=== PATIENT | male | born 1960 | race Two or more races ===

== ENCOUNTER 2021-02-09 18:25 | Inpatient (IN) | payer SELFPAY ==
[~2021-02-09] VITALS: Ht 177.8 cm; Wt 63.0 kg
[2021-02-09 19:21] LABS: Basophils # (auto) 0 10 ^3/uL (0-0.2); Eosinophils # (auto) 0.1 10 ^3/uL (0-0.8); Lymphocytes # (auto) 1.3 10 ^3/uL (0.4-5.4); Monocytes # (auto) 0.4 10 ^3/uL (0-1.3); Neutrophils # (auto) 2.6 10 ^3/uL (1.6-8.6); White Blood Cell 4.5 10^3/uL (4.4-10.8)
[2021-02-09 19:23] LABS: Eosinophils % (auto) 2.6 % (0.0-7.0); Hematocrit 39.1 % (41.0-53.0); Lymphocytes % (auto) 29.1 % (10.0-50.0); Mean Corpuscular Hemoglobin 36.5 pg (28.0-32.0); Mean Corpuscular Hgb Conc. 35.9 g/dL (32.0-36.0); Mean Corpuscular Volume 101.8 fL (80.0-100.0); Monocytes % (auto) 9.4 % (0.0-12.0); Neutrophils % (auto) 57.9 % (37.0-80.0); Nucleated Red Blood Cells % 0.1 %; Platelet Count (auto) 236 10^3/uL (140-450); Red Blood Cells 3.84 10^6/uL (4.5-5.90); Red Cell Distribution Width 13.3 % (11.8-14.3)
[2021-02-09 19:38] LABS: Albumin 3.2 g/dL (3.4-5.0); Anion Gap 10 (5-15); Blood Alcohol < 3.0 mg/dL (0-5); Blood Urea Nitrogen 14 mg/dL (7-18); Calcium 8.6 mg/dL (8.5-10.1); Carbon Dioxide 21 mmol/L (21-32); Chloride 107 mmol/L (98-107); Glucose 86 mg/dL (74-106); Magnesium 1.9 mg/dL (1.6-2.6); Potassium 3.9 mmol/L (3.5-5.1); Sodium 138 mmol/L (136-145)
[2021-02-09 19:54] LABS: Alanine Aminotransferase 26 U/L (16-61); Alkaline Phosphatase 62 U/L (45-117); Aspartate Aminotransferase 20 U/L (15-37); BUN/Creatinine Ratio 12.8; Bilirubin, Total 0.6 mg/dL (0.2-1.0); GFR African American 89 mL/min; GFR Non-African American 74 mL/min
[2021-02-09] MEDS ORDERED: cloNIDine HCL 0.1 MG TAB PO ONE (20:15)
[2021-02-09] MEDS ORDERED: TETANUS-DIPTH-ACEL PERTUSSIS 0.5ML SYR Tdap IM ONE (21:15)
[2021-02-09] MEDS ORDERED: ACETAMINOPHEN 325 MG TAB PO ONE (21:15)
[2021-02-09 21:44] LABS: Magnesium 1.9 mg/dL (1.6-2.6)
[2021-02-09 21:48] LABS: Alcohol, Urine < 3.0 mg/dL (0-10); Amphetamine Screen, Urine NEGATIVE (NEGATIVE); Barbiturate Scree,Urine NEGATIVE (NEGATIVE); Benzodiazephine Screen, Urine NEGATIVE (NEGATIVE); Cannabinoid Screen, Urine NEGATIVE (NEGATIVE); Cocaine Screen, Urine POSITIVE (NEGATIVE); Opiate Scree,Urine NEGATIVE (NEGATIVE); Phencyclidine Screen, Urine NEGATIVE (NEGATIVE)
[2021-02-10] VITALS (8 sets, daily range): BP systolic 125–158; BP diastolic 72–102
[2021-02-10] MEDS ORDERED: NITROGLYCERIN 0.4 MG SL TAB SL PRN (01:15)
[2021-02-10] MEDS ORDERED: hydrALAZINE HCL 20 MG/ML VL IV PRN (01:15)
[2021-02-10] MEDS ORDERED: DOCUSATE SOD 100 MG CAP PO PRN (01:15)
[2021-02-10] MEDS ORDERED: ACETAMINOPHEN 325 MG TAB PO PRN (01:15)
[2021-02-10] MEDS ORDERED: ONDANSETRON HCL 4 MG/2 ML VIAL IV PRN (01:15)
[2021-02-10] MEDS ORDERED: HYDROcodone-ACET 5/325MG TAB PO PRN (01:15)
[2021-02-10] MEDS ORDERED: LORazepam 2MG/ML-1ML VIAL IV PRN (01:15)
[2021-02-10] MEDS ORDERED: MORPHINE SULF INJ 2 MG/ML SYRINGE 1ML IV PRN (01:15)
[2021-02-10 08:44] LABS: Basophils # (auto) 0 10 ^3/uL (0-0.2); Basophils % (auto) 0.9 % (0.0-2.0); Eosinophils # (auto) 0.2 10 ^3/uL (0-0.8); Eosinophils % (auto) 3.3 % (0.0-7.0); Hematocrit 39.1 % (41.0-53.0); Hemoglobin 13.8 g/dL (13.5-17.5); Lymphocytes # (auto) 1.2 10 ^3/uL (0.4-5.4); Mean Corpuscular Hemoglobin 36.1 pg (28.0-32.0); Mean Corpuscular Hgb Conc. 35.3 g/dL (32.0-36.0); Mean Corpuscular Volume 102.3 fL (80.0-100.0); Monocytes # (auto) 0.5 10 ^3/uL (0-1.3); Monocytes % (auto) 10.1 % (0.0-12.0); Neutrophils % (auto) 61.7 % (37.0-80.0); Platelet Count (auto) 227 10^3/uL (140-450); Red Blood Cells 3.82 10^6/uL (4.5-5.90); Red Cell Distribution Width 13.1 % (11.8-14.3); White Blood Cell 4.9 10^3/uL (4.4-10.8)
[2021-02-10] MEDS ORDERED: ENOXAPARIN SOD 40 MG/0.4 ML SYRINGE SC SCH (10:00)
[2021-02-10] MEDS ORDERED: FOLIC ACID 1 MG TAB PO SCH (10:00)
[2021-02-10] MEDS ORDERED: ZINC SULFATE 220mg CAP or TAB PO SCH (10:00)
[2021-02-10] MEDS ORDERED: ASCORBIC ACID 500 MG TAB PO SCH (10:00)
[2021-02-10] MEDS ORDERED: THIAMINE HCL 100 MG TAB PO SCH (10:00)
[2021-02-10] MEDS ORDERED: FAMOTIDINE (10MG/ML) 2ML VL IV SCH (10:00)
[2021-02-10] MEDS ORDERED: amLODIPine BESYLATE 5 MG TAB PO SCH (10:00)
[2021-02-10] MEDS ORDERED: MULTIPLE VITAMIN TAB PO SCH (10:00)
[2021-02-10 10:36] LABS: Calcium 8.9 mg/dL (8.5-10.1)
[2021-02-10 10:41] LABS: BUN/Creatinine Ratio 11.9; Bilirubin, Total 0.7 mg/dL (0.2-1.0); Total Protein 6.6 g/dL (6.4-8.2)
== END 2021-02-10 18:40 | disposition home or self-care (01) | DRG 605 ==
LOC: EDBD 18:25 → ER 18:33 → TELE 02-10 01:10 → TELE-WESTW 02-10 02:40
PROVIDERS: ADMIT Nurse Practitioner Family; ATTEND Nurse Practitioner Family
DX: S80.219A Abrasion, unspecified knee, initial encounter (principal); S60.519A Abrasion of unspecified hand, initial encounter; Z20.822 Contact with and (suspected) exposure to COVID-19; E78.5 Hyperlipidemia, unspecified; F17.210 Nicotine dependence, cigarettes, uncomplicated; I11.9 Hypertensive heart disease without heart failure; W18.39XA Other fall on same level, initial encounter; I70.0 Atherosclerosis of aorta; F10.10 Alcohol abuse, uncomplicated; Y93.01 Activity, walking, marching and hiking; Y92.89 Other specified places as the place of occurrence of the external cause; Y99.8 Other external cause status; Z79.899 Other long term (current) drug therapy; Z86.73 Personal history of transient ischemic attack (TIA), and cerebral infarction without residual deficits; Z91.14 Patient's other noncompliance with medication regimen; Z91.19 Patient's noncompliance with other medical treatment and regimen; Z79.891 Long term (current) use of opiate analgesic; Z79.01 Long term (current) use of anticoagulants
CPT/HCPCS: 36415; 70450; 71045; 80053; 80307; 80320; 83735; 83880; 84484; 85025; 85610; 85730; 87426; 90715; 96374; G0378; J3490

== ENCOUNTER 2021-03-10 19:36 | Emergency (ER) | payer MEDICAID, OTHER ==
[~2021-03-10] VITALS: Ht 190.5 cm; Wt 72.6 kg
[2021-03-10 22:11] LABS: Hemoglobin 15.5 g/dL (13.5-17.5)
[2021-03-10 22:13] LABS: Basophils # (auto) 0 10 ^3/uL (0-0.2); Basophils % (auto) 0.6 % (0.0-2.0); Eosinophils # (auto) 0.2 10 ^3/uL (0-0.8); Eosinophils % (auto) 2.2 % (0.0-7.0); Hematocrit 44.1 % (41.0-53.0); Lymphocytes # (auto) 1.8 10 ^3/uL (0.4-5.4); Lymphocytes % (auto) 25.4 % (10.0-50.0); Mean Corpuscular Hemoglobin 35.9 pg (28.0-32.0); Mean Corpuscular Hgb Conc. 35.2 g/dL (32.0-36.0); Monocytes # (auto) 0.6 10 ^3/uL (0-1.3); Monocytes % (auto) 8.2 % (0.0-12.0); Neutrophils # (auto) 4.4 10 ^3/uL (1.6-8.6); Neutrophils % (auto) 63.6 % (37.0-80.0); Nucleated Red Blood Cells % 0.3 %; Platelet Count (auto) 211 10^3/uL (140-450); Red Blood Cells 4.32 10^6/uL (4.5-5.90)
[2021-03-10 22:37] LABS: Albumin 3.7 g/dL (3.4-5.0); Calcium 9.2 mg/dL (8.5-10.1); Potassium 3.9 mmol/L (3.5-5.1)
[2021-03-10 22:39] LABS: BUN/Creatinine Ratio 12.5
[2021-03-10 22:42] LABS: Bilirubin, Total 0.8 mg/dL (0.2-1.0); Total Protein 8.2 g/dL (6.4-8.2)
[2021-03-11] MEDS ORDERED: LABETALOL HCL 5 MG/ML 4ML SYRINGE IV ONE (06:15)
[2021-03-11] MEDS ORDERED: SODIUM CHLORIDE 0.9% 1,000 ML IV ONE (07:00)
[2021-03-11] MEDS ORDERED: ASPirin 81 mg TAB PO ONE (07:00)
[2021-03-11 08:10] LABS: INR 0.97 (0.9-1.15); Partial Thromboplastin Time 27.9 sec (23.0-31.2)
[2021-03-11] MEDS ORDERED: IOHEXOL 350 MG/ML 100ML IJ ONE (10:37)
[2021-03-11 11:37] LABS: Urine Bacteria NONE SEEN /hpf (None Seen); Urine Blood Negative /uL (Negative); Urine Mucus FEW (None Seen); Urine Specific Gravity 1.019 (1.001-1.035); Urine WBC 1 /hpf (0 - 3)
[2021-03-11] MEDS ORDERED: TAMSULOSIN HYDROCHLORIDE 0.4 MG CAP PO ONE (13:45)
[2021-03-11 15:00] VITALS: BP 150/85
== END 2021-03-11 15:29 | disposition home or self-care (01) ==
LOC: ER 19:39
DX: R07.89 Other chest pain (principal); J43.8 Other emphysema; I10 Essential (primary) hypertension; N40.0 Benign prostatic hyperplasia without lower urinary tract symptoms; D75.89 Other specified diseases of blood and blood-forming organs; E78.5 Hyperlipidemia, unspecified; F17.210 Nicotine dependence, cigarettes, uncomplicated; Z86.73 Personal history of transient ischemic attack (TIA), and cerebral infarction without residual deficits
CPT/HCPCS: 36415; 71045; 71275; 80053; 81001; 83735; 84443; 84484; 85025; 85049; 85379; 85610; 85730; 93005; 96361; 96374; 99285; J3490; Q9967

== ENCOUNTER 2021-04-18 20:39 | Emergency (ER) | payer MEDICAID ==
[~2021-04-18] VITALS: Ht 177.8 cm; Wt 72.6 kg
[2021-04-18 20:56] VITALS: BP 122/88
[2021-04-18] MEDS ORDERED: HYDROcodone-ACET 5/325MG TAB PO ONE (21:00)
[2021-04-18 21:12] LABS: Basophils # (auto) 0 10 ^3/uL (0-0.2); Basophils % (auto) 0.7 % (0.0-2.0); Eosinophils # (auto) 0.2 10 ^3/uL (0-0.8); Eosinophils % (auto) 3.2 % (0.0-7.0); Nucleated Red Blood Cells % 0.1 %
[2021-04-18 21:13] LABS: Hematocrit 46.6 % (41.0-53.0); Hemoglobin 16.1 g/dL (13.5-17.5); Lymphocytes # (auto) 1.5 10 ^3/uL (0.4-5.4); Lymphocytes % (auto) 30.1 % (10.0-50.0); Mean Corpuscular Hemoglobin 35.2 pg (28.0-32.0); Mean Corpuscular Hgb Conc. 34.5 g/dL (32.0-36.0); Monocytes # (auto) 0.3 10 ^3/uL (0-1.3); Monocytes % (auto) 6.9 % (0.0-12.0); Neutrophils % (auto) 59.1 % (37.0-80.0); Red Blood Cells 4.57 10^6/uL (4.5-5.90); Red Cell Distribution Width 15.2 % (11.8-14.3)
[2021-04-18 21:36] LABS: Alanine Aminotransferase 18 U/L (16-61); Albumin 3.8 g/dL (3.4-5.0); Anion Gap 8 (5-15); Aspartate Aminotransferase 19 U/L (15-37); BUN/Creatinine Ratio 11.6; Blood Urea Nitrogen 15 mg/dL (7-18); Carbon Dioxide 29 mmol/L (21-32); Chloride 104 mmol/L (98-107); GFR African American 73 mL/min; GFR Non-African American 61 mL/min; Glucose 105 mg/dL (74-106); Potassium 3.6 mmol/L (3.5-5.1); Sodium 141 mmol/L (136-145)
[2021-04-18 21:41] LABS: Alkaline Phosphatase 76 U/L (45-117); Bilirubin, Total 0.5 mg/dL (0.2-1.0); Total Protein 7.9 g/dL (6.4-8.2)
== END 2021-04-19 00:42 | disposition home or self-care (01) ==
LOC: EDBD 20:39 → ER 20:40
DX: K40.90 Unilateral inguinal hernia, without obstruction or gangrene, not specified as recurrent (principal); E78.5 Hyperlipidemia, unspecified; I10 Essential (primary) hypertension; F17.210 Nicotine dependence, cigarettes, uncomplicated; Z86.73 Personal history of transient ischemic attack (TIA), and cerebral infarction without residual deficits
CPT/HCPCS: 36415; 71045; 74176; 80053; 84484; 85025

== ENCOUNTER 2021-04-30 14:05 | Inpatient (IN) | payer MEDICAID ==
[~2021-04-30] VITALS: Ht 190.5 cm; Wt 61.1 kg
[2021-04-30] MEDS ORDERED: SODIUM CHLORIDE 0.9% 1,000 ML IV ONE ×2 (14:15)
[2021-04-30 15:59] LABS: Basophils # (auto) 0 10 ^3/uL (0-0.2); Eosinophils # (auto) 0 10 ^3/uL (0-0.8); Hemoglobin 14.8 g/dL (13.5-17.5); Monocytes # (auto) 0.6 10 ^3/uL (0-1.3); Red Cell Distribution Width 14.3 % (11.8-14.3)
[2021-04-30 16:01] LABS: Basophils % (auto) 0.4 % (0.0-2.0); Eosinophils % (auto) 0.5 % (0.0-7.0); Hematocrit 42.1 % (41.0-53.0); Lymphocytes % (auto) 11.1 % (10.0-50.0); Mean Corpuscular Hemoglobin 35.7 pg (28.0-32.0); Mean Corpuscular Hgb Conc. 35.2 g/dL (32.0-36.0); Mean Corpuscular Volume 101.6 fL (80.0-100.0); Monocytes % (auto) 6.7 % (0.0-12.0); Neutrophils % (auto) 81.3 % (37.0-80.0); Red Blood Cells 4.14 10^6/uL (4.5-5.90); White Blood Cell 8.6 10^3/uL (4.4-10.8)
[2021-04-30 16:16] LABS: Albumin 3.1 g/dL (3.4-5.0); BUN/Creatinine Ratio 9.6; Calcium 8.2 mg/dL (8.5-10.1); Potassium 3.9 mmol/L (3.5-5.1)
[2021-04-30 16:21] LABS: Bilirubin, Total 1.1 mg/dL (0.2-1.0); Total Protein 6.7 g/dL (6.4-8.2)
[2021-04-30 16:24] LABS: INR 1.02 (0.9-1.15); Partial Thromboplastin Time 25.8 sec (23.6-33.0)
[2021-04-30] MEDS ORDERED: ENOXAPARIN SOD 100 MG/1 ML SYRINGE SC ONE (17:30)
[2021-04-30 17:52] LABS: Urine Bacteria NONE SEEN /hpf (None Seen); Urine Blood Negative /uL (Negative); Urine WBC 1 /hpf (0 - 3)
[2021-04-30] MEDS ORDERED: MORPHINE SULFATE INJECTION 2 MG/ML SYRG IV PRN (21:00)
[2021-04-30] MEDS ORDERED: ACETAMINOPHEN 325 MG TAB PO PRN (21:00)
[2021-04-30] MEDS ORDERED: TEMAZEPAM 15 MG CAP PO PRN (21:00)
[2021-04-30] MEDS ORDERED: NITROGLYCERIN 0.4 MG SL TAB SL PRN (21:00)
[2021-04-30] MEDS ORDERED: ONDANSETRON HCL 4 MG/2 ML VIAL IV PRN (21:00)
[2021-04-30] MEDS: SODIUM CHLORIDE 0.9% 1,000 ML IV SCH (21:12)
[2021-04-30] MEDS: ATORVASTATIN 20 MG TAB PO SCH (22:30)
[2021-05-01] MEDS: cloNIDine HCL 0.1 MG TAB PO PRN ×2 (01:38→15:43)
[2021-05-01 06:42] LABS: Basophils # (auto) 0 10 ^3/uL (0-0.2); Eosinophils # (auto) 0.1 10 ^3/uL (0-0.8); Hemoglobin 15.1 g/dL (13.5-17.5); Mean Corpuscular Volume 102.6 fL (80.0-100.0); Monocytes # (auto) 0.5 10 ^3/uL (0-1.3); Neutrophils # (auto) 3.8 10 ^3/uL (1.6-8.6); Red Cell Distribution Width 14.8 % (11.8-14.3)
[2021-05-01 06:45] LABS: Basophils % (auto) 0.5 % (0.0-2.0); Eosinophils % (auto) 1.4 % (0.0-7.0); Hematocrit 43.3 % (41.0-53.0); Lymphocytes # (auto) 1.4 10 ^3/uL (0.4-5.4); Lymphocytes % (auto) 24.4 % (10.0-50.0); Mean Corpuscular Hemoglobin 35.9 pg (28.0-32.0); Neutrophils % (auto) 65.7 % (37.0-80.0); Red Blood Cells 4.22 10^6/uL (4.5-5.90); White Blood Cell 5.8 10^3/uL (4.4-10.8)
[2021-05-01 07:02] LABS: Albumin 3.1 g/dL (3.4-5.0); Calcium 8.7 mg/dL (8.5-10.1); Potassium 4.3 mmol/L (3.5-5.1)
[2021-05-01 07:06] LABS: BUN/Creatinine Ratio 12.4; Bilirubin, Total 1.3 mg/dL (0.2-1.0); Total Protein 6.8 g/dL (6.4-8.2)
[2021-05-01] MEDS: PANTOPRAZOLE 40 MG TAB PO SCH (09:17)
[2021-05-01] MEDS: SODIUM CHLORIDE 0.9% 1,000 ML IV SCH (09:18)
[2021-05-01] MEDS: ENOXAPARIN SOD 40 MG/0.4 ML SYRINGE SC SCH (09:18)
[2021-05-01] MEDS ORDERED: ASPirin 81 mg TAB PO SCH (10:00)
[2021-05-01] MEDS ORDERED: amLODIPine BESYLATE 5 MG TAB PO SCH (10:00)
[2021-05-01] MEDS ORDERED: NIFEdipine ER 30 MG TAB PO ONE (16:30)
[2021-05-01] MEDS ORDERED: hydrALAZINE HCL 20 MG/ML VL IV PRN (16:30)
[2021-05-01] MEDS: FOLIC ACID 1 MG, MULTIPLE VITAMIN 10 ML, MAGNESIUM SULF SDV 50% 8 MEQ, THIAMINE INJ 100... INJ SCH ×5 (18:15)
[2021-05-01] MEDS ORDERED: LORazepam 2MG/ML-1ML VIAL IV PRN (21:00)
[2021-05-01] MEDS: ATORVASTATIN 20 MG TAB PO SCH (22:30)
[2021-05-02] VITALS (7 sets, daily range): BP systolic 122–135; BP diastolic 66–92
[2021-05-02 07:06] LABS: Chloride 104 mmol/L (98-107); Potassium 3.8 mmol/L (3.5-5.1); Sodium 138 mmol/L (136-145)
[2021-05-02 07:21] LABS: Alanine Aminotransferase 18 U/L (16-61); Alkaline Phosphatase 63 U/L (45-117); Anion Gap 6 (5-15); Aspartate Aminotransferase 18 U/L (15-37); BUN/Creatinine Ratio 10.8; Bilirubin, Total 0.9 mg/dL (0.2-1.0); Blood Urea Nitrogen 12 mg/dL (7-18); Carbon Dioxide 28 mmol/L (21-32); Cholesterol 158 mg/dL (< 200); GFR African American 87 mL/min; GFR Non-African American 72 mL/min; Glucose 102 mg/dL (74-106); HDL Cholesterol 54 mg/dL (40-59); LDL Cholesterol 78 mg/dL (< 100); Total Protein 7.1 g/dL (6.4-8.2); Triglycerides 128 mg/dL (< 150)
[2021-05-02 08:24] LABS: Eosinophils # (auto) 0.1 10 ^3/uL (0-0.8); Hematocrit 43.7 % (41.0-53.0); Monocytes # (auto) 0.5 10 ^3/uL (0-1.3)
[2021-05-02 08:26] LABS: Basophils # (auto) 0.1 10 ^3/uL (0-0.2); Basophils % (auto) 0.9 % (0.0-2.0); Eosinophils % (auto) 1.7 % (0.0-7.0); Hemoglobin 15.1 g/dL (13.5-17.5); Lymphocytes # (auto) 1.1 10 ^3/uL (0.4-5.4); Lymphocytes % (auto) 17.9 % (10.0-50.0); Mean Corpuscular Hemoglobin 35.4 pg (28.0-32.0); Mean Corpuscular Hgb Conc. 34.6 g/dL (32.0-36.0); Mean Corpuscular Volume 102.4 fL (80.0-100.0); Monocytes % (auto) 7.7 % (0.0-12.0); Neutrophils # (auto) 4.6 10 ^3/uL (1.6-8.6); Neutrophils % (auto) 71.8 % (37.0-80.0); Nucleated Red Blood Cells % 0.1 %; Red Blood Cells 4.27 10^6/uL (4.5-5.90); Red Cell Distribution Width 14.5 % (11.8-14.3); White Blood Cell 6.4 10^3/uL (4.4-10.8)
[2021-05-02] MEDS: LISINOPRIL 20 MG TAB PO SCH (09:56)
[2021-05-02] MEDS: ASPirin 81 mg TAB PO SCH (09:56)
[2021-05-02] MEDS: PANTOPRAZOLE 40 MG TAB PO SCH (09:57)
[2021-05-02] MEDS: NIFEdipine ER 30 MG TAB PO SCH (09:57)
[2021-05-02] MEDS: ENOXAPARIN SOD 40 MG/0.4 ML SYRINGE SC SCH (09:58)
[2021-05-02] MEDS: FOLIC ACID 1 MG, MULTIPLE VITAMIN 10 ML, MAGNESIUM SULF SDV 50% 8 MEQ, THIAMINE INJ 100... INJ SCH ×5 (13:34)
[2021-05-02] MEDS ORDERED: TAM04C PO (17:56)
[2021-05-02] MEDS: ATORVASTATIN 20 MG TAB PO SCH (21:35)
[2021-05-03 05:00] VITALS: BP 134/60
[2021-05-03 09:00] VITALS: BP 129/86
[2021-05-03 09:23] LABS: Hepatitis B Surface Antibody Negative
[2021-05-03] MEDS ORDERED: ADENOSINE 51 MG in GIVE UN-DILUTED 0 ML IV ONE (09:30)
[2021-05-03 09:53] LABS: Hepatitis A Total Antibody Negative
[2021-05-03] MEDS: LISINOPRIL 20 MG TAB PO SCH (11:26)
[2021-05-03] MEDS: ASPirin 81 mg TAB PO SCH (11:26)
[2021-05-03] MEDS: ENOXAPARIN SOD 40 MG/0.4 ML SYRINGE SC SCH (11:26)
[2021-05-03] MEDS: NIFEdipine ER 30 MG TAB PO SCH (11:27)
[2021-05-03] MEDS: PANTOPRAZOLE 40 MG TAB PO SCH (11:27)
[2021-05-03 13:00] VITALS: BP 127/88
[2021-05-03] MEDS: FOLIC ACID 1 MG, MULTIPLE VITAMIN 10 ML, MAGNESIUM SULF SDV 50% 8 MEQ, THIAMINE INJ 100... INJ SCH ×5 (13:06)
[2021-05-03 14:35] LABS: Hepatitis B Core Total AB Negative; Hepatitis B Surface Antigen Negative (Negative); Hepatitis C Antibody Negative (Negative)
[2021-05-03 15:08] LABS: Alcohol, Urine < 3.0 mg/dL (0-10); Amphetamine Screen, Urine NEGATIVE (NEGATIVE); Barbiturate Scree,Urine NEGATIVE (NEGATIVE); Benzodiazephine Screen, Urine NEGATIVE (NEGATIVE); Cannabinoid Screen, Urine NEGATIVE (NEGATIVE); Cocaine Screen, Urine NEGATIVE (NEGATIVE); Opiate Scree,Urine NEGATIVE (NEGATIVE); Phencyclidine Screen, Urine NEGATIVE (NEGATIVE)
[2021-05-03 17:00] VITALS: BP 112/74
[2021-05-03] MEDS: TAMSULOSIN HYDROCHLORIDE 0.4 MG CAP PO SCH (18:00)
[2021-05-03 20:00] VITALS: BP 105/60
[2021-05-03] MEDS: ATORVASTATIN 20 MG TAB PO SCH (21:56)
[2021-05-03 22:00] VITALS: BP 105/60
[2021-05-04 05:00] VITALS: BP 114/67
[2021-05-04 06:12] LABS: Potassium 3.8 mmol/L (3.5-5.1)
[2021-05-04 06:19] LABS: BUN/Creatinine Ratio 11.1; Magnesium 2.6 mg/dL (1.6-2.6)
[2021-05-04] MEDS ORDERED: MIDAZOLAM HCL 2MG/2ML 2ml VIAL (1mg/ml) IV ONE (08:00)
[2021-05-04] MEDS ORDERED: diphenhdrAMINE HCL 50 MG/1 ML VL ONE (09:24)
[2021-05-04] MEDS ORDERED: LIDOCAINE VISCOUS 2% 15ML UD ONE (09:24)
[2021-05-04] MEDS: LISINOPRIL 20 MG TAB PO SCH (11:00)
[2021-05-04] MEDS: PANTOPRAZOLE 40 MG TAB PO SCH (11:00)
[2021-05-04] MEDS: ENOXAPARIN SOD 40 MG/0.4 ML SYRINGE SC SCH (11:00)
[2021-05-04] MEDS: ASPirin 81 mg TAB PO SCH (11:00)
[2021-05-04] MEDS: NIFEdipine ER 30 MG TAB PO SCH (11:00)
[2021-05-04] MEDS: FOLIC ACID 1 MG, MULTIPLE VITAMIN 10 ML, MAGNESIUM SULF SDV 50% 8 MEQ, THIAMINE INJ 100... INJ SCH ×5 (12:00)
[2021-05-04] MEDS ORDERED: ATOR20TA PO (12:30)
[2021-05-04] MEDS ORDERED: LISI20TA28 PO (12:30)
[2021-05-04] MEDS ORDERED: APIX2.5T PO (12:30)
[2021-05-04] MEDS ORDERED: PANT40TA2 PO (12:30)
[2021-05-04] MEDS ORDERED: NIFE1TAB31 PO (12:30)
[2021-05-04 15:53] VITALS: BP 112/67
[2021-05-04] MEDS: TAMSULOSIN HYDROCHLORIDE 0.4 MG CAP PO SCH (18:00)
== END 2021-05-04 18:45 | disposition hospice, home (50) | DRG 45 ==
LOC: EDBD 14:05 → EDUNIT# 14:05 → ER 14:05 → TELE 20:47 → TELE-WESTW 05-01 23:34
PROVIDERS: ADMIT Nurse Practitioner; ATTEND Internal Medicine
PROC: B24BZZ4 Ultrasonography of Heart with Aorta, Transesophageal (ICD-10-PCS; principal; 2021-05-04)
DX: I63.9 Cerebral infarction, unspecified (principal); N17.0 Acute kidney failure with tubular necrosis; I21.A1 Myocardial infarction type 2; G93.41 Metabolic encephalopathy; E44.0 Moderate protein-calorie malnutrition; F10.20 Alcohol dependence, uncomplicated; Z20.822 Contact with and (suspected) exposure to COVID-19; E78.5 Hyperlipidemia, unspecified; F12.90 Cannabis use, unspecified, uncomplicated; I11.0 Hypertensive heart disease with heart failure; I42.9 Cardiomyopathy, unspecified; G81.94 Hemiplegia, unspecified affecting left nondominant side; I50.43 Acute on chronic combined systolic (congestive) and diastolic (congestive) heart failure; I67.83 Posterior reversible encephalopathy syndrome; K46.9 Unspecified abdominal hernia without obstruction or gangrene; N40.0 Benign prostatic hyperplasia without lower urinary tract symptoms; Z79.82 Long term (current) use of aspirin; Z79.899 Other long term (current) drug therapy; Z91.14 Patient's other noncompliance with medication regimen; Z68.1 Body mass index [BMI] 19.9 or less, adult
CPT/HCPCS: 36415; 70450; 70551; 71045; 78452; 80048; 80053; 80061; 80307; 81001; 82306; 82550; 82962; 83735; 83880; 84443; 84484; 85025; 85610; 85730; 86704; 86706; 86708; 86803; 87340; 87426; 87493; 93005; 93017; 93306; 93312; 93886; 95819; 96360; 96361; 96372; 97163; 99152; G0378; J0153; J2250

== ENCOUNTER 2021-06-24 12:55 | Emergency (ER) | payer MEDICAID ==
[~2021-06-24] VITALS: Ht 180.3 cm; Wt 72.6 kg
[~2021-06-24 12:55] MED LIST: APIX2.5T PO; LISI20TA28 PO; PANT40TA2 PO; TAM04C PO
[2021-06-24 14:22] LABS: Basophils # (auto) 0 10 ^3/uL (0-0.2); Basophils % (auto) 0.4 % (0.0-2.0); Eosinophils # (auto) 0.1 10 ^3/uL (0-0.8); Eosinophils % (auto) 1.5 % (0.0-7.0); Hemoglobin 14.3 g/dL (13.5-17.5); Lymphocytes # (auto) 1.1 10 ^3/uL (0.4-5.4); Lymphocytes % (auto) 18.5 % (10.0-50.0); Mean Corpuscular Hemoglobin 33.9 pg (28.0-32.0); Mean Corpuscular Volume 99.7 fL (80.0-100.0); Monocytes # (auto) 0.4 10 ^3/uL (0-1.3); Monocytes % (auto) 6.8 % (0.0-12.0); Neutrophils # (auto) 4.4 10 ^3/uL (1.6-8.6); Neutrophils % (auto) 72.8 % (37.0-80.0); Red Blood Cells 4.21 10^6/uL (4.5-5.90); Red Cell Distribution Width 13.5 % (11.8-14.3)
[2021-06-24 14:39] LABS: Albumin 3.4 g/dL (3.4-5.0); Anion Gap 6 (5-15); Blood Urea Nitrogen 16 mg/dL (7-18); Calcium 9.3 mg/dL (8.5-10.1); Carbon Dioxide 29 mmol/L (21-32); Chloride 108 mmol/L (98-107); Glucose 71 mg/dL (74-106); Potassium 3.8 mmol/L (3.5-5.1); Sodium 143 mmol/L (136-145)
[2021-06-24 14:41] LABS: Alanine Aminotransferase 27 U/L (16-61); Aspartate Aminotransferase 16 U/L (15-37); BUN/Creatinine Ratio 10.6; Blood Alcohol < 3.0 mg/dL (0-5); GFR African American 61 mL/min; GFR Non-African American 51 mL/min
[2021-06-24 14:44] LABS: Alkaline Phosphatase 76 U/L (45-117); Bilirubin, Total 0.6 mg/dL (0.2-1.0); Total Protein 7.3 g/dL (6.4-8.2)
[2021-06-24 17:13] VITALS: BP 153/107
== END 2021-06-24 17:16 | disposition home or self-care (01) ==
LOC: EDBD 12:55 → ER 12:55
DX: S70.01XA Contusion of right hip, initial encounter (principal); S80.01XA Contusion of right knee, initial encounter; S00.81XA Abrasion of other part of head, initial encounter; I10 Essential (primary) hypertension; E78.5 Hyperlipidemia, unspecified; Z86.73 Personal history of transient ischemic attack (TIA), and cerebral infarction without residual deficits; Z79.899 Other long term (current) drug therapy; W18.39XA Other fall on same level, initial encounter; Y93.89 Activity, other specified; Y92.89 Other specified places as the place of occurrence of the external cause; Y99.8 Other external cause status
CPT/HCPCS: 36415; 70450; 70486; 72125; 73502; 80053; 80320; 85025

== ENCOUNTER 2021-07-10 15:44 | Inpatient (IN) | payer OTHER ==
[~2021-07-10] VITALS: Ht 193 cm; Wt 68.6 kg
[2021-07-10] MEDS ORDERED: IOHEXOL 300 MG/ML 100ML BOTTLE IJ ONE (20:54)
[2021-07-10 23:31] LABS: Basophils # (auto) 0 10 ^3/uL (0-0.2); Basophils % (auto) 0.3 % (0.0-2.0); Eosinophils # (auto) 0.1 10 ^3/uL (0-0.8); Eosinophils % (auto) 2.7 % (0.0-7.0); Hematocrit 37.6 % (41.0-53.0); Hemoglobin 12.5 g/dL (13.5-17.5); Lymphocytes # (auto) 1.6 10 ^3/uL (0.4-5.4); Lymphocytes % (auto) 30.2 % (10.0-50.0); Mean Corpuscular Hemoglobin 32.6 pg (28.0-32.0); Mean Corpuscular Hgb Conc. 33.3 g/dL (32.0-36.0); Mean Corpuscular Volume 97.9 fL (80.0-100.0); Monocytes # (auto) 0.4 10 ^3/uL (0-1.3); Monocytes % (auto) 7.1 % (0.0-12.0); Neutrophils # (auto) 3.1 10 ^3/uL (1.6-8.6); Neutrophils % (auto) 59.7 % (37.0-80.0); Nucleated Red Blood Cells % 0.1 %; Red Blood Cells 3.84 10^6/uL (4.5-5.90); Red Cell Distribution Width 13.6 % (11.8-14.3); White Blood Cell 5.2 10^3/uL (4.4-10.8)
[2021-07-10 23:51] LABS: Potassium 3.9 mmol/L (3.5-5.1)
[2021-07-10 23:55] LABS: Albumin 3.4 g/dL (3.4-5.0); BUN/Creatinine Ratio 14.4; Calcium 8.8 mg/dL (8.5-10.1)
[2021-07-11 00:08] LABS: Bilirubin, Total 0.6 mg/dL (0.2-1.0); Total Protein 7.2 g/dL (6.4-8.2)
[2021-07-11 03:44] LABS: Urine Bacteria NONE SEEN /hpf (None Seen); Urine Blood 1+ /uL (Negative); Urine Hyaline Cast FEW /lpf (0 - 2); Urine Specific Gravity 1.027 (1.001-1.035); Urine WBC 3 /hpf (0 - 3)
[2021-07-11] MEDS ORDERED: ONDANSETRON HCL 4 MG/2 ML VIAL IV PRN (03:45)
[2021-07-11] MEDS: SODIUM CHLORIDE 0.9% 1,000 ML IV SCH ×2 (04:00→17:05)
[2021-07-11] MEDS ORDERED: GASTROGRAFIN 120 ML SOL ONE (09:01)
[2021-07-11] MEDS: PANTOPRAZOLE 40 MG/10 ML VIAL INJ IV SCH (10:00)
[2021-07-11] MEDS ORDERED: TAMS0.4C36 PO (14:16)
[2021-07-11] MEDS: METOPROLOL TARTRATE 50 MG TAB PO SCH ×2 (14:45→22:42)
[2021-07-11] MEDS ORDERED: cloNIDine HCL 0.1 MG TAB PO PRN (14:45)
[2021-07-11 15:25] LABS: INR 0.99 (0.9-1.15); Partial Thromboplastin Time 29.1 sec (23.6-33.0)
[2021-07-12] MEDS ORDERED: ATROPINE SULFATE 1 MG/1 ML VIAL ONE (03:00)
[2021-07-12] MEDS: ATROPINE SULF 1 MG/10ml SYR IV PRN ×2 (03:07→13:21)
[2021-07-12] MEDS: SODIUM CHLORIDE 0.9% 1,000 ML IV SCH ×2 (08:28→20:57)
[2021-07-12] MEDS: METOPROLOL TARTRATE 50 MG TAB PO SCH ×2 (10:00→22:34)
[2021-07-12] MEDS: PANTOPRAZOLE 40 MG/10 ML VIAL INJ IV SCH (10:21)
[2021-07-12 11:38] LABS: Basophils # (auto) 0 10 ^3/uL (0-0.2); Basophils % (auto) 0.3 % (0.0-2.0); Eosinophils # (auto) 0.1 10 ^3/uL (0-0.8); Eosinophils % (auto) 2.3 % (0.0-7.0); Hematocrit 38.5 % (41.0-53.0); Mean Corpuscular Hemoglobin 33.3 pg (28.0-32.0); Mean Corpuscular Hgb Conc. 33.7 g/dL (32.0-36.0); Mean Corpuscular Volume 98.7 fL (80.0-100.0); Monocytes # (auto) 0.3 10 ^3/uL (0-1.3); Monocytes % (auto) 5.4 % (0.0-12.0); Neutrophils # (auto) 4.4 10 ^3/uL (1.6-8.6); Nucleated Red Blood Cells % 0.1 %; Red Cell Distribution Width 13.2 % (11.8-14.3); White Blood Cell 5.9 10^3/uL (4.4-10.8)
[2021-07-12 11:57] LABS: Potassium 5.1 mmol/L (3.5-5.1)
[2021-07-12 12:05] LABS: BUN/Creatinine Ratio 15.1; Bilirubin, Total 0.9 mg/dL (0.2-1.0); Calcium 8.7 mg/dL (8.5-10.1); Total Protein 6.4 g/dL (6.4-8.2)
[2021-07-13] MEDS: METOPROLOL TARTRATE 50 MG TAB PO SCH ×2 (09:14→22:49)
[2021-07-13] MEDS: SODIUM CHLORIDE 0.9% 1,000 ML IV SCH (09:14)
[2021-07-13] MEDS: PANTOPRAZOLE 40 MG/10 ML VIAL INJ IV SCH (09:19)
[2021-07-14] MEDS: SODIUM CHLORIDE 0.9% 1,000 ML IV SCH ×3 (04:34→21:50)
[2021-07-14] MEDS: PANTOPRAZOLE 40 MG/10 ML VIAL INJ IV SCH (11:25)
[2021-07-14] MEDS: METOPROLOL TARTRATE 50 MG TAB PO SCH ×2 (11:25→21:50)
[2021-07-14 15:40] VITALS: BP 139/73
[2021-07-14 23:42] VITALS: BP 138/79
[2021-07-15 05:27] VITALS: BP 119/74
[2021-07-15 08:45] VITALS: BP 134/73
[2021-07-15] MEDS: PANTOPRAZOLE 40 MG/10 ML VIAL INJ IV SCH (09:41)
[2021-07-15] MEDS: METOPROLOL TARTRATE 50 MG TAB PO SCH ×2 (09:42→22:08)
[2021-07-15 13:30] VITALS: BP 144/78
[2021-07-15] MEDS: SODIUM CHLORIDE 0.9% 1,000 ML IV SCH (14:29)
[2021-07-15 17:06] VITALS: BP 127/79
[2021-07-15 22:49] VITALS: BP 158/95
[2021-07-16] MEDS: SODIUM CHLORIDE 0.9% 1,000 ML IV SCH ×2 (03:58→21:35)
[2021-07-16 06:00] VITALS: BP 157/90
[2021-07-16] MEDS ORDERED: ceFAZolin 1GM/50ML 100 ML IV ONE (07:19)
[2021-07-16] MEDS ORDERED: ONDANSETRON HCL 4 MG/2 ML VIAL ONE (07:20)
[2021-07-16] MEDS ORDERED: PROPOFOL 10 MG/ML 20 ML IV ONE ×2 (07:20→08:51)
[2021-07-16] MEDS ORDERED: MIDAZOLAM HCL 2MG/2ML 2ml VIAL (1mg/ml) ONE (07:20)
[2021-07-16] MEDS ORDERED: SODIUM CHLORIDE LOCK 10 ML ONE (07:20)
[2021-07-16] MEDS ORDERED: fentaNYL CITRATE 100 MCG/2 ML VL ONE (07:20)
[2021-07-16] MEDS ORDERED: BUPIVACAINE 0.25% INJ 50ML VIAL ONE (07:25)
[2021-07-16] MEDS ORDERED: BUPIVACAINE 0.5% P/F INJ 10 ML VIAL ONE (07:37)
[2021-07-16] MEDS ORDERED: MORPHINE SULFATE 4 MG/ML SYR/VIAL IV PRN (08:30)
[2021-07-16] MEDS ORDERED: METOCLOPRAMIDE HCL 5MG/ml INJ 2ml VIAL IV PRN (08:30)
[2021-07-16] MEDS ORDERED: HYDROmorphone HCL 2 MG/ML VL IV PRN (08:30)
[2021-07-16] MEDS ORDERED: LIDOCAINE 2% (LOCAL ANESTH.) PF 5ml SDV ONE (08:43)
[2021-07-16] MEDS ORDERED: cefTRIAXone 1GM/50ML D5W 50 ML IV ONE (11:15)
[2021-07-16 13:00] VITALS: BP_SYST 117; BP_SYST 138; BP_DIAS 78; BP_DIAS 86
[2021-07-16] MEDS: PANTOPRAZOLE 40 MG/10 ML VIAL INJ IV SCH (13:28)
[2021-07-16] MEDS: THIAMINE 100mg/ml INJ (200mg/2ml VIAL) IV SCH (13:28)
[2021-07-16] MEDS: METOPROLOL TARTRATE 50 MG TAB PO SCH ×2 (13:30→21:32)
[2021-07-16] MEDS: MORPHINE SULFATE 4 MG/ML SYR/VIAL IV PRN ×2 (13:30→21:34)
[2021-07-16] MEDS: metroNIDAZOLE 500MG/100ML 100 ML IV SCH ×2 (14:08→21:32)
[2021-07-16 16:49] VITALS: BP_SYST 117; BP_SYST 134; BP_DIAS 73; BP_DIAS 89
[2021-07-16] MEDS: ATORVASTATIN 20 MG TAB PO SCH (21:32)
[2021-07-16 22:00] VITALS: BP 149/90
[2021-07-17] MEDS: metroNIDAZOLE 500MG/100ML 100 ML IV SCH ×3 (06:07→21:30)
[2021-07-17] MEDS: cefTRIAXone 1GM/50ML D5W 50 ML IV SCH (10:15)
[2021-07-17] MEDS: PANTOPRAZOLE 40 MG/10 ML VIAL INJ IV SCH (10:15)
[2021-07-17] MEDS: THIAMINE 100mg/ml INJ (200mg/2ml VIAL) IV SCH (10:15)
[2021-07-17] MEDS: METOPROLOL TARTRATE 50 MG TAB PO SCH ×2 (10:16→21:30)
[2021-07-17 13:00] VITALS: BP 154/81
[2021-07-17] MEDS: ATORVASTATIN 20 MG TAB PO SCH (21:30)
[2021-07-17 22:00] VITALS: BP_SYST 150; BP_SYST 97; BP_DIAS 65; BP_DIAS 91
[2021-07-18 05:00] VITALS: BP 130/83
[2021-07-18] MEDS: metroNIDAZOLE 500MG/100ML 100 ML IV SCH ×2 (05:20→14:10)
[2021-07-18] MEDS: SODIUM CHLORIDE 0.9% 1,000 ML IV SCH (05:21)
[2021-07-18 05:47] LABS: Basophils # (auto) 0 10 ^3/uL (0-0.2); Basophils % (auto) 0.3 % (0.0-2.0); Eosinophils # (auto) 0.1 10 ^3/uL (0-0.8); Eosinophils % (auto) 1.3 % (0.0-7.0); Hematocrit 32.4 % (41.0-53.0); Hemoglobin 11.2 g/dL (13.5-17.5); Lymphocytes % (auto) 13.1 % (10.0-50.0); Mean Corpuscular Hemoglobin 33.3 pg (28.0-32.0); Mean Corpuscular Hgb Conc. 34.5 g/dL (32.0-36.0); Mean Corpuscular Volume 96.8 fL (80.0-100.0); Monocytes # (auto) 0.8 10 ^3/uL (0-1.3); Monocytes % (auto) 9.7 % (0.0-12.0); Neutrophils # (auto) 5.9 10 ^3/uL (1.6-8.6); Neutrophils % (auto) 75.6 % (37.0-80.0); Nucleated Red Blood Cells % 0.1 %; Red Blood Cells 3.34 10^6/uL (4.5-5.90); Red Cell Distribution Width 13.3 % (11.8-14.3); White Blood Cell 7.8 10^3/uL (4.4-10.8)
[2021-07-18 06:05] LABS: Potassium 3.4 mmol/L (3.5-5.1)
[2021-07-18 06:11] LABS: Albumin 1.8 g/dL (3.4-5.0); BUN/Creatinine Ratio 13.2; Bilirubin, Total 0.5 mg/dL (0.2-1.0); Total Protein 4.9 g/dL (6.4-8.2)
[2021-07-18 09:00] VITALS: BP 142/78
[2021-07-18] MEDS: THIAMINE 100mg/ml INJ (200mg/2ml VIAL) IV SCH (11:07)
[2021-07-18] MEDS: PANTOPRAZOLE 40 MG/10 ML VIAL INJ IV SCH (11:07)
[2021-07-18] MEDS: cefTRIAXone 1GM/50ML D5W 50 ML IV SCH (11:07)
[2021-07-18] MEDS: METOPROLOL TARTRATE 50 MG TAB PO SCH (11:09)
[2021-07-18 11:45] LABS: Folate (Folic Acid) 4.53 ng/mL (5.38-24)
[2021-07-18 13:00] VITALS: BP 141/89
[2021-07-18 14:52] VITALS: BP 149/75
== END 2021-07-18 16:30 | disposition home or self-care (01) | DRG 228 ==
LOC: EDBD 15:44 → ER 15:44 → EDUNIT# 07-11 03:35 → OVERFLOW 07-11 03:35 → WEST WING 07-14 15:34
PROVIDERS: ADMIT Nurse Practitioner; ATTEND Family Medicine
PROC: 0YQA0ZZ Repair Bilateral Inguinal Region, Open Approach (ICD-10-PCS; principal; 2021-07-16 07:42)
DX: K40.20 Bilateral inguinal hernia, without obstruction or gangrene, not specified as recurrent (principal); G93.41 Metabolic encephalopathy; R71.0 Precipitous drop in hematocrit; E78.5 Hyperlipidemia, unspecified; F12.90 Cannabis use, unspecified, uncomplicated; F17.210 Nicotine dependence, cigarettes, uncomplicated; I10 Essential (primary) hypertension; F10.20 Alcohol dependence, uncomplicated; Z79.899 Other long term (current) drug therapy; Z82.49 Family history of ischemic heart disease and other diseases of the circulatory system; I69.328 Other speech and language deficits following cerebral infarction; Q21.1 Atrial septal defect
CPT/HCPCS: 36415; 71045; 74177; 74250; 80053; 81001; 82607; 82746; 84443; 85025; 85610; 85730; 86850; 86900; 86901; 87426; 88302; 92610; 93005; 96361; 96374; 97116; 97163; 97530; C9113; G0378; J0461; J0690; J0696; J2001; J2250; J2405; J2704; J3490

== ENCOUNTER 2021-07-23 15:41 | Inpatient (IN) | payer OTHER ==
[~2021-07-23] VITALS: Ht 175.3 cm; Wt 58.1 kg
[~2021-07-23 15:41] MED LIST changes: +TAMS0.4C36 PO
[2021-07-23] MEDS ORDERED: SODIUM CHLORIDE 0.9% 1,000 ML IVB ONE (16:00)
[2021-07-23 17:25] LABS: Albumin 2.6 g/dL (3.4-5.0); Anion Gap 8 (5-15); Blood Alcohol < 3.0 mg/dL (0-5); Blood Urea Nitrogen 10 mg/dL (7-18); Calcium 8.6 mg/dL (8.5-10.1); Carbon Dioxide 27 mmol/L (21-32); Chloride 104 mmol/L (98-107); Glucose 100 mg/dL (74-106); Potassium 3.5 mmol/L (3.5-5.1); Sodium 139 mmol/L (136-145)
[2021-07-23 17:29] LABS: Alanine Aminotransferase 20 U/L (16-61); Alkaline Phosphatase 67 U/L (45-117); Aspartate Aminotransferase 27 U/L (15-37); BUN/Creatinine Ratio 11.4; Bilirubin, Total 0.5 mg/dL (0.2-1.0); GFR African American 114 mL/min; GFR Non-African American 94 mL/min; Total Protein 6.8 g/dL (6.4-8.2)
[2021-07-23 17:31] LABS: Salicylate < 1.7 mg/dL (2.8-20.0)
[2021-07-23 17:32] LABS: Acetaminophen < 2.0 ug/mL (10-30)
[2021-07-23 18:17] LABS: Barbiturate Scree,Urine NEGATIVE (NEGATIVE); Benzodiazephine Screen, Urine POSITIVE (NEGATIVE); Cannabinoid Screen, Urine NEGATIVE (NEGATIVE); Cocaine Screen, Urine NEGATIVE (NEGATIVE); Opiate Scree,Urine POSITIVE (NEGATIVE); Phencyclidine Screen, Urine NEGATIVE (NEGATIVE)
[2021-07-23 18:18] LABS: Urine Bacteria MOD /hpf (None Seen); Urine Blood Negative /uL (Negative); Urine Hyaline Cast FEW /lpf (0 - 2); Urine Mucus FEW (None Seen); Urine Specific Gravity 1.035 (1.001-1.035); Urine WBC 3 /hpf (0 - 3)
[2021-07-23 18:24] LABS: Amphetamine Screen, Urine NEGATIVE (NEGATIVE)
[2021-07-23 19:29] LABS: Basophils # (auto) 0 10 ^3/uL (0-0.2); Basophils % (auto) 0.3 % (0.0-2.0); Eosinophils # (auto) 0.1 10 ^3/uL (0-0.8); Eosinophils % (auto) 0.6 % (0.0-7.0); Hematocrit 31.2 % (41.0-53.0); Hemoglobin 10.4 g/dL (13.5-17.5); Lymphocytes # (auto) 0.9 10 ^3/uL (0.4-5.4); Lymphocytes % (auto) 8.3 % (10.0-50.0); Mean Corpuscular Hemoglobin 32.5 pg (28.0-32.0); Mean Corpuscular Hgb Conc. 33.4 g/dL (32.0-36.0); Mean Corpuscular Volume 97.1 fL (80.0-100.0); Monocytes # (auto) 0.7 10 ^3/uL (0-1.3); Monocytes % (auto) 6.1 % (0.0-12.0); Neutrophils # (auto) 9.6 10 ^3/uL (1.6-8.6); Neutrophils % (auto) 84.7 % (37.0-80.0); Red Blood Cells 3.21 10^6/uL (4.5-5.90); Red Cell Distribution Width 13.6 % (11.8-14.3); White Blood Cell 11.4 10^3/uL (4.4-10.8)
[2021-07-23] MEDS ORDERED: cefTRIAXone 1GM/50ML D5W 50 ML IV ONE (20:45)
[2021-07-23] MEDS ORDERED: AZITHROMYCIN 500MG/ 250ML 250 ML IV ONE (21:45)
[2021-07-23] MEDS ORDERED: ONDANSETRON HCL 4 MG/2 ML VIAL IV PRN (21:45)
[2021-07-23] MEDS ORDERED: ACETAMINOPHEN 325 MG TAB PO PRN (21:45)
[2021-07-23] MEDS ORDERED: SODIUM CHLORIDE 0.9% 1,000 ML IV ONE (21:45)
[2021-07-23] MEDS: APIXABAN 2.5 MG TAB PO SCH (22:47)
[2021-07-23] MEDS: ASCORBIC ACID 500 MG TAB PO SCH (22:47)
[2021-07-24 08:09] LABS: Basophils # (auto) 0 10 ^3/uL (0-0.2); Basophils % (auto) 0.4 % (0.0-2.0); Eosinophils # (auto) 0.1 10 ^3/uL (0-0.8); Eosinophils % (auto) 1.1 % (0.0-7.0); Hematocrit 33.2 % (41.0-53.0); Hemoglobin 11.1 g/dL (13.5-17.5); Lymphocytes # (auto) 1.1 10 ^3/uL (0.4-5.4); Lymphocytes % (auto) 14.9 % (10.0-50.0); Mean Corpuscular Hemoglobin 32.5 pg (28.0-32.0); Mean Corpuscular Hgb Conc. 33.5 g/dL (32.0-36.0); Mean Corpuscular Volume 96.8 fL (80.0-100.0); Monocytes # (auto) 0.4 10 ^3/uL (0-1.3); Monocytes % (auto) 5.7 % (0.0-12.0); Neutrophils # (auto) 5.6 10 ^3/uL (1.6-8.6); Neutrophils % (auto) 77.9 % (37.0-80.0); Nucleated Red Blood Cells % 0.1 %; Red Blood Cells 3.43 10^6/uL (4.5-5.90); Red Cell Distribution Width 13.8 % (11.8-14.3); White Blood Cell 7.2 10^3/uL (4.4-10.8)
[2021-07-24 08:27] LABS: BUN/Creatinine Ratio 11.8; Calcium 8.3 mg/dL (8.5-10.1); Potassium 3.2 mmol/L (3.5-5.1)
[2021-07-24] MEDS: APIXABAN 2.5 MG TAB PO SCH ×2 (10:00→21:32)
[2021-07-24] MEDS: LISINOPRIL 20 MG TAB PO SCH (10:00)
[2021-07-24] MEDS: ZINC SULFATE 220mg CAP or TAB PO SCH (10:00)
[2021-07-24] MEDS: ASCORBIC ACID 500 MG TAB PO SCH ×2 (10:00→21:33)
[2021-07-24] MEDS: PANTOPRAZOLE 40 MG TAB PO SCH (10:00)
[2021-07-24] MEDS: AZITHROMYCIN 500MG/ 250ML 250 ML IV SCH (10:20)
[2021-07-24 17:55] VITALS: BP 140/85
[2021-07-24] MEDS: TAMSULOSIN HYDROCHLORIDE 0.4 MG CAP PO SCH (18:00)
[2021-07-24 22:00] VITALS: BP 156/93
[2021-07-24] MEDS: SODIUM CHLORIDE 0.9% 1,000 ML IV SCH (22:05)
[2021-07-25] MEDS: SODIUM CHLORIDE 0.9% 1,000 ML IV SCH ×3 (02:10→21:30)
[2021-07-25 05:00] VITALS: BP 142/83
[2021-07-25 07:50] LABS: Basophils # (auto) 0 10 ^3/uL (0-0.2); Basophils % (auto) 0.6 % (0.0-2.0); Eosinophils # (auto) 0.2 10 ^3/uL (0-0.8); Eosinophils % (auto) 2.3 % (0.0-7.0); Hematocrit 31.8 % (41.0-53.0); Hemoglobin 10.9 g/dL (13.5-17.5); Lymphocytes # (auto) 1.1 10 ^3/uL (0.4-5.4); Lymphocytes % (auto) 16.2 % (10.0-50.0); Mean Corpuscular Hemoglobin 32.6 pg (28.0-32.0); Mean Corpuscular Hgb Conc. 34.3 g/dL (32.0-36.0); Monocytes # (auto) 0.6 10 ^3/uL (0-1.3); Monocytes % (auto) 8.7 % (0.0-12.0); Neutrophils # (auto) 4.9 10 ^3/uL (1.6-8.6); Neutrophils % (auto) 72.2 % (37.0-80.0); Red Blood Cells 3.34 10^6/uL (4.5-5.90); Red Cell Distribution Width 13.5 % (11.8-14.3); White Blood Cell 6.7 10^3/uL (4.4-10.8)
[2021-07-25 08:13] LABS: Albumin 2.3 g/dL (3.4-5.0); Calcium 8.4 mg/dL (8.5-10.1); Potassium 3.3 mmol/L (3.5-5.1)
[2021-07-25 08:18] LABS: BUN/Creatinine Ratio 11.1; Total Protein 5.6 g/dL (6.4-8.2)
[2021-07-25 09:00] VITALS: BP 140/78
[2021-07-25] MEDS: LISINOPRIL 20 MG TAB PO SCH (10:00)
[2021-07-25] MEDS: APIXABAN 2.5 MG TAB PO SCH ×2 (10:00→21:26)
[2021-07-25] MEDS: ZINC SULFATE 220mg CAP or TAB PO SCH (10:00)
[2021-07-25] MEDS: PANTOPRAZOLE 40 MG TAB PO SCH (10:00)
[2021-07-25] MEDS: ASCORBIC ACID 500 MG TAB PO SCH ×2 (10:00→21:26)
[2021-07-25] MEDS: AZITHROMYCIN 500MG/ 250ML 250 ML IV SCH (12:00)
[2021-07-25 13:00] VITALS: BP 161/78
[2021-07-25] MEDS ORDERED: POTASSIUM CHLORIDE 60 MEQ, LIDOCAINE 1% (LOCAL ANESTH.) 6 ML in SODIUM CHL 0.9% 500 ML IV ONE (15:45)
[2021-07-25 17:00] VITALS: BP 161/87
[2021-07-25] MEDS ORDERED: hydrALAZINE HCL 20 MG/ML VL IV PRN (17:30)
[2021-07-25] MEDS: TAMSULOSIN HYDROCHLORIDE 0.4 MG CAP PO SCH (17:44)
[2021-07-25 18:49] VITALS: BP 130/77
[2021-07-25 21:13] VITALS: BP 161/74
[2021-07-25] MEDS ORDERED: LABETALOL HCL 5 MG/ML 4ML SYRINGE IV ONE (22:30)
[2021-07-26 02:26] LABS: Albumin 1.9 g/dL (3.4-5.0); BUN/Creatinine Ratio 14.8; Calcium 8.2 mg/dL (8.5-10.1); Potassium 3.5 mmol/L (3.5-5.1)
[2021-07-26 02:28] LABS: Bilirubin, Total 0.6 mg/dL (0.2-1.0); Total Protein 5.7 g/dL (6.4-8.2)
[2021-07-26 05:01] VITALS: BP 116/66
[2021-07-26] MEDS: SODIUM CHLORIDE 0.9% 1,000 ML IV SCH ×3 (06:01→21:13)
[2021-07-26 09:00] VITALS: BP 125/62
[2021-07-26] MEDS: AZITHROMYCIN 500MG/ 250ML 250 ML IV SCH (10:53)
[2021-07-26] MEDS: APIXABAN 2.5 MG TAB PO SCH ×2 (10:53→21:04)
[2021-07-26] MEDS: PANTOPRAZOLE 40 MG TAB PO SCH (10:54)
[2021-07-26] MEDS: LISINOPRIL 20 MG TAB PO SCH (10:54)
[2021-07-26 13:00] VITALS: BP 120/67
[2021-07-26 17:00] VITALS: BP 138/85
[2021-07-26] MEDS: TAMSULOSIN HYDROCHLORIDE 0.4 MG CAP PO SCH (17:56)
[2021-07-26 21:36] VITALS: BP 132/62
[2021-07-27 05:00] VITALS: BP 125/70
[2021-07-27 09:00] VITALS: BP 134/73
[2021-07-27] MEDS: AZITHROMYCIN 500MG/ 250ML 250 ML IV SCH (09:46)
[2021-07-27] MEDS: PANTOPRAZOLE 40 MG TAB PO SCH (09:47)
[2021-07-27] MEDS: APIXABAN 2.5 MG TAB PO SCH ×2 (09:47→22:55)
[2021-07-27] MEDS: LISINOPRIL 20 MG TAB PO SCH (09:48)
[2021-07-27] MEDS ORDERED: FOLIC ACID 1 MG, MULTIPLE VITAMIN 10 ML, MAGNESIUM SULF SDV 50% 8 MEQ, THIAMINE INJ 100... INJ SCH ×5 (12:00)
[2021-07-27 13:00] VITALS: BP 154/92
[2021-07-27] MEDS: SODIUM CHLORIDE 0.9% 1,000 ML IV SCH ×2 (13:27→23:30)
[2021-07-27 17:00] VITALS: BP 132/63
[2021-07-27] MEDS ORDERED: LORazepam 2MG/ML-1ML VIAL IV PRN (17:45)
[2021-07-27] MEDS: TAMSULOSIN HYDROCHLORIDE 0.4 MG CAP PO SCH (17:47)
[2021-07-27 21:55] VITALS: BP 135/91
[2021-07-27] MEDS: ATORVASTATIN 20 MG TAB PO SCH (22:55)
[2021-07-28 05:00] VITALS: BP 151/84
[2021-07-28 07:35] LABS: Potassium 3.9 mmol/L (3.5-5.1)
[2021-07-28 07:42] LABS: BUN/Creatinine Ratio 9.9
[2021-07-28 07:43] LABS: Calcium 8.6 mg/dL (8.5-10.1); Magnesium 2.6 mg/dL (1.6-2.6)
[2021-07-28 09:00] VITALS: BP 132/78
[2021-07-28] MEDS ORDERED: FOLIC ACID 1 MG in D5W 5% 50 ML INJ SCH (10:00)
[2021-07-28] MEDS: APIXABAN 2.5 MG TAB PO SCH ×2 (10:24→22:08)
[2021-07-28] MEDS: SODIUM CHLORIDE 0.9% 1,000 ML IV SCH (10:24)
[2021-07-28] MEDS: AZITHROMYCIN 500MG/ 250ML 250 ML IV SCH (10:24)
[2021-07-28] MEDS: PANTOPRAZOLE 40 MG TAB PO SCH (10:25)
[2021-07-28] MEDS: LISINOPRIL 20 MG TAB PO SCH (10:27)
[2021-07-28 13:00] VITALS: BP 144/74
[2021-07-28 17:00] VITALS: BP 139/71
[2021-07-28] MEDS: TAMSULOSIN HYDROCHLORIDE 0.4 MG CAP PO SCH (17:35)
[2021-07-28 22:00] VITALS: BP 121/72
[2021-07-28] MEDS: ATORVASTATIN 20 MG TAB PO SCH (22:08)
[2021-07-29 05:00] VITALS: BP 137/77
[2021-07-29 09:00] VITALS: BP 130/70
[2021-07-29] MEDS: AZITHROMYCIN 500MG/ 250ML 250 ML IV SCH (11:26)
[2021-07-29] MEDS: THIAMINE HCL 100 MG TAB PO SCH (11:26)
[2021-07-29] MEDS: FOLIC ACID 1 MG TAB PO SCH (11:26)
[2021-07-29] MEDS: PANTOPRAZOLE 40 MG TAB PO SCH (11:27)
[2021-07-29] MEDS: APIXABAN 2.5 MG TAB PO SCH ×2 (11:27→22:22)
[2021-07-29] MEDS: LISINOPRIL 20 MG TAB PO SCH (11:28)
[2021-07-29 13:00] VITALS: BP 127/73
[2021-07-29 16:36] VITALS: BP 131/76
[2021-07-29] MEDS: Ensure HIGH Protein Chocolate 8oz Bottle PO SCH (18:36)
[2021-07-29] MEDS: TAMSULOSIN HYDROCHLORIDE 0.4 MG CAP PO SCH (18:36)
[2021-07-29 22:00] VITALS: BP 124/78
[2021-07-29] MEDS: ATORVASTATIN 20 MG TAB PO SCH (22:22)
[2021-07-30 05:00] VITALS: BP 132/82
[2021-07-30 06:42] LABS: Albumin 2.4 g/dL (3.4-5.0); Potassium 4.3 mmol/L (3.5-5.1)
[2021-07-30 06:50] LABS: BUN/Creatinine Ratio 13.1; Bilirubin, Total 0.8 mg/dL (0.2-1.0); Calcium 8.7 mg/dL (8.5-10.1); Total Protein 6.2 g/dL (6.4-8.2)
[2021-07-30 06:56] LABS: Basophils # (auto) 0.1 10 ^3/uL (0-0.2); Basophils % (auto) 1.3 % (0.0-2.0); Eosinophils # (auto) 0.2 10 ^3/uL (0-0.8); Eosinophils % (auto) 4.2 % (0.0-7.0); Hematocrit 32.1 % (41.0-53.0); Hemoglobin 11.3 g/dL (13.5-17.5); Lymphocytes # (auto) 1.6 10 ^3/uL (0.4-5.4); Lymphocytes % (auto) 27.4 % (10.0-50.0); Mean Corpuscular Hemoglobin 33.6 pg (28.0-32.0); Mean Corpuscular Hgb Conc. 35.2 g/dL (32.0-36.0); Mean Corpuscular Volume 95.5 fL (80.0-100.0); Monocytes # (auto) 0.5 10 ^3/uL (0-1.3); Monocytes % (auto) 9.6 % (0.0-12.0); Neutrophils # (auto) 3.3 10 ^3/uL (1.6-8.6); Neutrophils % (auto) 57.5 % (37.0-80.0); Nucleated Red Blood Cells % 0.2 %; Red Blood Cells 3.36 10^6/uL (4.5-5.90); Red Cell Distribution Width 13.6 % (11.8-14.3); White Blood Cell 5.7 10^3/uL (4.4-10.8)
[2021-07-30] MEDS: Ensure HIGH Protein Chocolate 8oz Bottle PO SCH ×2 (07:33→17:47)
[2021-07-30 08:00] VITALS: BP 126/72
[2021-07-30] MEDS: LISINOPRIL 20 MG TAB PO SCH (10:13)
[2021-07-30] MEDS: PANTOPRAZOLE 40 MG TAB PO SCH (10:13)
[2021-07-30] MEDS: APIXABAN 2.5 MG TAB PO SCH ×2 (10:13→20:45)
[2021-07-30] MEDS: FOLIC ACID 1 MG TAB PO SCH (10:13)
[2021-07-30] MEDS: THIAMINE HCL 100 MG TAB PO SCH (10:13)
[2021-07-30] MEDS: AZITHROMYCIN 500MG/ 250ML 250 ML IV SCH (10:14)
[2021-07-30 10:54] LABS: Folate (Folic Acid) 9.69 ng/mL (5.38-24)
[2021-07-30] MEDS ORDERED: THIA100T10 PO (11:40)
[2021-07-30] MEDS ORDERED: ERGO1CAP23 PO (11:44)
[2021-07-30] MEDS ORDERED: ERGOCALCIFEROL 50,000 UNIT(1.25MG) CAP PO SCH (11:45)
[2021-07-30 11:57] VITALS: BP 126/78
[2021-07-30 16:42] VITALS: BP 128/78
[2021-07-30] MEDS: TAMSULOSIN HYDROCHLORIDE 0.4 MG CAP PO SCH (17:54)
[2021-07-30] MEDS: ATORVASTATIN 20 MG TAB PO SCH (20:45)
[2021-07-30 21:19] VITALS: BP 138/93
== END 2021-07-30 23:21 | disposition home or self-care (01) | DRG 812 ==
LOC: EDUNIT# 15:41 → ER 15:41 → EDBD 15:41 → OVERFLOW 21:33 → WEST WING 07-24 13:18
PROVIDERS: ADMIT Nurse Practitioner; ATTEND Internal Medicine
DX: T40.601A Poisoning by unspecified narcotics, accidental (unintentional), initial encounter (principal); J69.0 Pneumonitis due to inhalation of food and vomit; G92.9 Unspecified toxic encephalopathy; E43 Unspecified severe protein-calorie malnutrition; D64.9 Anemia, unspecified; E11.9 Type 2 diabetes mellitus without complications; E53.8 Deficiency of other specified B group vitamins; E55.9 Vitamin D deficiency, unspecified; E78.5 Hyperlipidemia, unspecified; I10 Essential (primary) hypertension; F17.210 Nicotine dependence, cigarettes, uncomplicated; I25.10 Atherosclerotic heart disease of native coronary artery without angina pectoris; Z20.822 Contact with and (suspected) exposure to COVID-19; F10.20 Alcohol dependence, uncomplicated; E78.00 Pure hypercholesterolemia, unspecified; N40.0 Benign prostatic hyperplasia without lower urinary tract symptoms; E87.6 Hypokalemia; Z68.1 Body mass index [BMI] 19.9 or less, adult; Z79.01 Long term (current) use of anticoagulants; Z79.899 Other long term (current) drug therapy; Z86.73 Personal history of transient ischemic attack (TIA), and cerebral infarction without residual deficits; Z82.49 Family history of ischemic heart disease and other diseases of the circulatory system; T42.4X1A Poisoning by benzodiazepines, accidental (unintentional), initial encounter
CPT/HCPCS: 36415; 36600; 70450; 71045; 80048; 80053; 80307; 80320; 80329; 81001; 82306; 82607; 82746; 82805; 83605; 83735; 85025; 87040; 87426; 92610; 95819; 96361; 96365; 96366; 96367; 97116; 97163; 97530; 99291; G0378; J0696; J2001; J3490

== ENCOUNTER 2021-10-01 20:03 | Inpatient (IN) | payer OTHER ==
[~2021-10-01] VITALS: Ht 167.6 cm; Wt 56.0 kg
[~2021-10-01 20:03] MED LIST changes: +ERGO1CAP23 PO; +THIA100T10 PO
[2021-10-02] MEDS ORDERED: IOHEXOL 300 MG/ML 100ML BOTTLE IJ ONE (00:14)
[2021-10-02 01:16] LABS: Alanine Aminotransferase 40 U/L (16-61); Albumin 3.9 g/dL (3.4-5.0); Anion Gap 7 (5-15); Blood Alcohol < 3.0 mg/dL (0-5); Calcium 9.7 mg/dL (8.5-10.1); Carbon Dioxide 26 mmol/L (21-32); Chloride 110 mmol/L (98-107); Eosinophils # (auto) 0 10 ^3/uL (0-0.8); GFR African American 51 mL/min; GFR Non-African American 42 mL/min; Glucose 130 mg/dL (74-106); Hematocrit 37.5 % (41.0-53.0); Hemoglobin 12.4 g/dL (13.5-17.5); Potassium 4.3 mmol/L (3.5-5.1); Sodium 143 mmol/L (136-145); White Blood Cell 8.1 10^3/uL (4.4-10.8)
[2021-10-02 01:30] LABS: Basophils # (auto) 0 10 ^3/uL (0-0.2); Basophils % (auto) 0.3 % (0.0-2.0); Lymphocytes # (auto) 0.7 10 ^3/uL (0.4-5.4); Lymphocytes % (auto) 8.6 % (10.0-50.0); Mean Corpuscular Hemoglobin 31.5 pg (28.0-32.0); Mean Corpuscular Hgb Conc. 33.2 g/dL (32.0-36.0); Mean Corpuscular Volume 94.9 fL (80.0-100.0); Monocytes # (auto) 0.8 10 ^3/uL (0-1.3); Monocytes % (auto) 10.1 % (0.0-12.0); Neutrophils # (auto) 6.5 10 ^3/uL (1.6-8.6); Nucleated Red Blood Cells % 0.2 %; Red Blood Cells 3.95 10^6/uL (4.5-5.90); Red Cell Distribution Width 14.8 % (11.8-14.3)
[2021-10-02 01:31] LABS: Alkaline Phosphatase 82 U/L (45-117); Aspartate Aminotransferase 74 U/L (15-37); Bilirubin, Total 0.7 mg/dL (0.2-1.0); Blood Urea Nitrogen 54 mg/dL (7-18); Total Protein 8.7 g/dL (6.4-8.2)
[2021-10-02 01:35] LABS: BUN/Creatinine Ratio 30.9
[2021-10-02 02:57] LABS: Urine Bacteria FEW /hpf (None Seen); Urine Blood TRACE /uL (Negative); Urine Specific Gravity 1.029 (1.001-1.035); Urine WBC 2 /hpf (0 - 3)
[2021-10-02] MEDS ORDERED: ACETAMINOPHEN 325 MG TAB PO PRN (06:45)
[2021-10-02] MEDS ORDERED: NITROGLYCERIN 0.4 MG SL TAB SL PRN (06:45)
[2021-10-02] MEDS ORDERED: MORPHINE SULFATE INJECTION 2 MG/ML SYRG IV PRN (06:45)
[2021-10-02] MEDS ORDERED: ONDANSETRON HCL 4 MG/2 ML VIAL IV PRN (06:45)
[2021-10-02] MEDS ORDERED: ENOXAPARIN SOD 100 MG/1 ML SYRINGE SC ONE (06:45)
[2021-10-02 07:53] LABS: Alcohol, Urine < 3.0 mg/dL (0-10); Amphetamine Screen, Urine NEGATIVE (NEGATIVE); Barbiturate Scree,Urine NEGATIVE (NEGATIVE); Benzodiazephine Screen, Urine NEGATIVE (NEGATIVE); Cannabinoid Screen, Urine NEGATIVE (NEGATIVE); Cocaine Screen, Urine NEGATIVE (NEGATIVE); Opiate Scree,Urine NEGATIVE (NEGATIVE); Phencyclidine Screen, Urine NEGATIVE (NEGATIVE)
[2021-10-02 08:44] LABS: INR 1.07 (0.9-1.15); Partial Thromboplastin Time 28.7 sec (23.6-33.0)
[2021-10-02] MEDS ORDERED: AZITHROMYCIN 500MG/ 250ML 250 ML IV SCH (10:00)
[2021-10-02] MEDS ORDERED: LISINOPRIL 20 MG TAB PO SCH (10:00)
[2021-10-02] MEDS: AZITHROMYCIN 500MG/ 250ML 250 ML IV SCH (10:26)
[2021-10-02] MEDS: PANTOPRAZOLE 40 MG TAB PO SCH (10:26)
[2021-10-02] MEDS ORDERED: SODIUM CHLORIDE 0.9% 1,000 ML IV ONE (16:00)
[2021-10-02] MEDS ORDERED: SODIUM CHLORIDE 0.9% 1,000 ML IV SCH (18:15)
[2021-10-02 22:30] VITALS: BP 112/70
[2021-10-02] MEDS: ATORVASTATIN 20 MG TAB PO SCH (23:00)
[2021-10-03 06:39] LABS: Basophils # (auto) 0 10 ^3/uL (0-0.2); Basophils % (auto) 0.2 % (0.0-2.0); Eosinophils # (auto) 0 10 ^3/uL (0-0.8); Eosinophils % (auto) 0.1 % (0.0-7.0); Hematocrit 33.2 % (41.0-53.0); Hemoglobin 11.1 g/dL (13.5-17.5); Lymphocytes # (auto) 1.1 10 ^3/uL (0.4-5.4); Lymphocytes % (auto) 16.2 % (10.0-50.0); Mean Corpuscular Hemoglobin 31.8 pg (28.0-32.0); Mean Corpuscular Hgb Conc. 33.3 g/dL (32.0-36.0); Mean Corpuscular Volume 95.6 fL (80.0-100.0); Monocytes # (auto) 0.5 10 ^3/uL (0-1.3); Monocytes % (auto) 6.9 % (0.0-12.0); Neutrophils # (auto) 5.2 10 ^3/uL (1.6-8.6); Neutrophils % (auto) 76.6 % (37.0-80.0); Red Blood Cells 3.48 10^6/uL (4.5-5.90); White Blood Cell 6.8 10^3/uL (4.4-10.8)
[2021-10-03 07:07] LABS: Potassium 3.9 mmol/L (3.5-5.1)
[2021-10-03 07:18] LABS: Thyroid Stimulating Hormone 2.06 uIU/mL (0.358-3.74)
[2021-10-03 07:26] LABS: Bilirubin, Total 0.5 mg/dL (0.2-1.0); CRP High Sensitivity 6.25 mg/dL (< 0.3); Calcium 8.7 mg/dL (8.5-10.1); Magnesium 3.3 mg/dL (1.6-2.6); Total Protein 7.1 g/dL (6.4-8.2)
[2021-10-03 08:33] VITALS: BP 113/74
[2021-10-03] MEDS: AZITHROMYCIN 500MG/ 250ML 250 ML IV SCH (10:47)
[2021-10-03] MEDS: ASPirin 81 mg TAB PO SCH (10:47)
[2021-10-03] MEDS: PANTOPRAZOLE 40 MG TAB PO SCH (10:48)
[2021-10-03] MEDS: THIAMINE HCL 100 MG TAB PO SCH (10:48)
[2021-10-03] MEDS: ASCORBIC ACID 1,000 MG TAB PO SCH (10:48)
[2021-10-03] MEDS: CHOLECALCIFEROL (VITD3) 2,000 UNIT CAP/TAB PO SCH (10:48)
[2021-10-03] MEDS: FOLIC ACID 1 MG TAB PO SCH (10:48)
[2021-10-03] MEDS: MULTIPLE VITAMINS W/ MINERALS TAB PO SCH (10:48)
[2021-10-03] MEDS: ZINC SULFATE 220mg CAP or TAB PO SCH (10:49)
[2021-10-03] MEDS: IVERMECTIN 3 MG TAB PO SCH (10:49)
[2021-10-03 12:54] VITALS: BP 131/84
[2021-10-03] MEDS ORDERED: cefTRIAXone 1GM/50ML D5W 50 ML IV ONE (15:30)
[2021-10-03 16:46] VITALS: BP 103/87
[2021-10-03] MEDS: TAMSULOSIN HYDROCHLORIDE 0.4 MG CAP PO SCH (18:41)
[2021-10-03] MEDS: SODIUM CHLORIDE 0.9% 1,000 ML IV SCH (18:41)
[2021-10-03] MEDS: ALBUTEROL SULF HFA 90MCG INH 200DOSE IN PRN (20:26)
[2021-10-03] MEDS: ATORVASTATIN 20 MG TAB PO SCH (21:21)
[2021-10-03 21:30] VITALS: BP 107/59
[2021-10-04 05:00] VITALS: BP 126/75
[2021-10-04 07:04] LABS: Calcium 8.2 mg/dL (8.5-10.1); Potassium 3.6 mmol/L (3.5-5.1)
[2021-10-04 07:11] LABS: CRP High Sensitivity 3.34 mg/dL (< 0.3)
[2021-10-04 08:00] VITALS: BP 127/67
[2021-10-04 08:45] VITALS: BP 127/67
[2021-10-04] MEDS: AZITHROMYCIN 500MG/ 250ML 250 ML IV SCH (10:17)
[2021-10-04] MEDS: THIAMINE HCL 100 MG TAB PO SCH (10:17)
[2021-10-04] MEDS: ASPirin 81 mg TAB PO SCH (10:17)
[2021-10-04] MEDS: cefTRIAXone 1GM/50ML D5W 50 ML IV SCH (10:17)
[2021-10-04] MEDS: FOLIC ACID 1 MG TAB PO SCH (10:17)
[2021-10-04] MEDS: IVERMECTIN 3 MG TAB PO SCH (10:18)
[2021-10-04] MEDS: ASCORBIC ACID 1,000 MG TAB PO SCH (10:18)
[2021-10-04] MEDS: MULTIPLE VITAMINS W/ MINERALS TAB PO SCH (10:18)
[2021-10-04] MEDS: CHOLECALCIFEROL (VITD3) 2,000 UNIT CAP/TAB PO SCH (10:18)
[2021-10-04] MEDS: PANTOPRAZOLE 40 MG TAB PO SCH (10:18)
[2021-10-04] MEDS: ZINC SULFATE 220mg CAP or TAB PO SCH (10:18)
[2021-10-04] MEDS: SODIUM CHLORIDE 0.9% 1,000 ML IV SCH (10:18)
[2021-10-04 12:36] VITALS: BP 114/74
[2021-10-04] MEDS: ALBUTEROL SULF HFA 90MCG INH 200DOSE IN PRN (13:59)
[2021-10-04 17:46] VITALS: BP 147/78
[2021-10-04] MEDS: TAMSULOSIN HYDROCHLORIDE 0.4 MG CAP PO SCH (18:00)
[2021-10-04 21:11] VITALS: BP 118/66
[2021-10-04] MEDS: ATORVASTATIN 20 MG TAB PO SCH (21:51)
[2021-10-05] VITALS (7 sets, daily range): BP systolic 119–150; BP diastolic 71–90
[2021-10-05] MEDS: ALBUTEROL SULF HFA 90MCG INH 200DOSE IN PRN ×2 (08:32→19:13)
[2021-10-05] MEDS: cefTRIAXone 1GM/50ML D5W 50 ML IV SCH (08:40)
[2021-10-05] MEDS: SODIUM CHLORIDE 0.9% 1,000 ML IV SCH (08:40)
[2021-10-05] MEDS: AZITHROMYCIN 500MG/ 250ML 250 ML IV SCH (09:32)
[2021-10-05] MEDS: ASPirin 81 mg TAB PO SCH (09:32)
[2021-10-05] MEDS: THIAMINE HCL 100 MG TAB PO SCH (09:33)
[2021-10-05] MEDS: FOLIC ACID 1 MG TAB PO SCH (09:33)
[2021-10-05] MEDS: ZINC SULFATE 220mg CAP or TAB PO SCH (09:33)
[2021-10-05] MEDS: PANTOPRAZOLE 40 MG TAB PO SCH (09:33)
[2021-10-05] MEDS: MULTIPLE VITAMINS W/ MINERALS TAB PO SCH (09:33)
[2021-10-05] MEDS: ASCORBIC ACID 1,000 MG TAB PO SCH (09:33)
[2021-10-05] MEDS: IVERMECTIN 3 MG TAB PO SCH (09:33)
[2021-10-05] MEDS: CHOLECALCIFEROL (VITD3) 2,000 UNIT CAP/TAB PO SCH (09:34)
[2021-10-05 11:59] LABS: Calcium 8.2 mg/dL (8.5-10.1); Magnesium 2.7 mg/dL (1.6-2.6); Potassium 3.8 mmol/L (3.5-5.1)
[2021-10-05 12:09] LABS: Basophils # (auto) 0 10 ^3/uL (0-0.2); Basophils % (auto) 0.6 % (0.0-2.0); Eosinophils # (auto) 0.2 10 ^3/uL (0-0.8); Eosinophils % (auto) 3.7 % (0.0-7.0); Hematocrit 30.1 % (41.0-53.0); Hemoglobin 10.4 g/dL (13.5-17.5); Lymphocytes # (auto) 0.9 10 ^3/uL (0.4-5.4); Lymphocytes % (auto) 19.7 % (10.0-50.0); Mean Corpuscular Hemoglobin 31.7 pg (28.0-32.0); Mean Corpuscular Hgb Conc. 34.4 g/dL (32.0-36.0); Mean Corpuscular Volume 92.2 fL (80.0-100.0); Monocytes # (auto) 0.4 10 ^3/uL (0-1.3); Monocytes % (auto) 9.5 % (0.0-12.0); Neutrophils % (auto) 66.5 % (37.0-80.0); Red Blood Cells 3.27 10^6/uL (4.5-5.90); Red Cell Distribution Width 14.3 % (11.8-14.3); White Blood Cell 4.6 10^3/uL (4.4-10.8)
[2021-10-05 12:12] LABS: BUN/Creatinine Ratio 20.7; CRP High Sensitivity 2.64 mg/dL (< 0.3)
[2021-10-05] MEDS ORDERED: ALBUAER3 IN (14:48)
[2021-10-05] MEDS ORDERED: PRED20TA2 PO (14:48)
[2021-10-05] MEDS ORDERED: ATOR10TA PO (14:48)
[2021-10-05] MEDS ORDERED: ASCO10003 PO (14:48)
[2021-10-05] MEDS ORDERED: ZINC220T6 PO (14:48)
[2021-10-05] MEDS ORDERED: DOXY-286 PO (14:48)
[2021-10-05] MEDS: TAMSULOSIN HYDROCHLORIDE 0.4 MG CAP PO SCH (18:04)
[2021-10-05] MEDS: ATORVASTATIN 20 MG TAB PO SCH (21:07)
[2021-10-06 05:00] VITALS: BP 133/84
[2021-10-06] MEDS: ALBUTEROL SULF HFA 90MCG INH 200DOSE IN PRN (06:08)
[2021-10-06 08:00] VITALS: BP 141/88
[2021-10-06] MEDS: AZITHROMYCIN 500MG/ 250ML 250 ML IV SCH (08:54)
[2021-10-06] MEDS: cefTRIAXone 1GM/50ML D5W 50 ML IV SCH (08:54)
[2021-10-06] MEDS: ASPirin 81 mg TAB PO SCH (08:54)
[2021-10-06] MEDS: THIAMINE HCL 100 MG TAB PO SCH (08:54)
[2021-10-06] MEDS: FOLIC ACID 1 MG TAB PO SCH (08:54)
[2021-10-06] MEDS: ASCORBIC ACID 1,000 MG TAB PO SCH (08:55)
[2021-10-06] MEDS: PANTOPRAZOLE 40 MG TAB PO SCH (08:55)
[2021-10-06] MEDS: ZINC SULFATE 220mg CAP or TAB PO SCH (08:55)
[2021-10-06] MEDS: MULTIPLE VITAMINS W/ MINERALS TAB PO SCH (08:55)
[2021-10-06] MEDS: CHOLECALCIFEROL (VITD3) 2,000 UNIT CAP/TAB PO SCH (08:55)
[2021-10-06] MEDS: IVERMECTIN 3 MG TAB PO SCH (08:55)
[2021-10-06 12:00] VITALS: BP 134/90
[2021-10-06] MEDS ORDERED: PRED20TA2 PO (12:15)
[2021-10-06 16:00] VITALS: BP 130/80
== END 2021-10-06 17:39 | disposition home health service (06) | DRG 137 ==
LOC: EDBD 20:03 → EDUNIT# 20:03 → ER 20:04 → TELE 10-02 06:35 → TELE-EAST 10-02 23:14
PROVIDERS: ADMIT Nurse Practitioner; ATTEND Internal Medicine
DX: U07.1 COVID-19 (principal); N17.0 Acute kidney failure with tubular necrosis; J12.82 Pneumonia due to coronavirus disease 2019; E43 Unspecified severe protein-calorie malnutrition; I21.A1 Myocardial infarction type 2; I50.43 Acute on chronic combined systolic (congestive) and diastolic (congestive) heart failure; K40.20 Bilateral inguinal hernia, without obstruction or gangrene, not specified as recurrent; N40.0 Benign prostatic hyperplasia without lower urinary tract symptoms; R62.7 Adult failure to thrive; E78.5 Hyperlipidemia, unspecified; E11.9 Type 2 diabetes mellitus without complications; F17.210 Nicotine dependence, cigarettes, uncomplicated; I11.0 Hypertensive heart disease with heart failure; I25.10 Atherosclerotic heart disease of native coronary artery without angina pectoris; R54 Age-related physical debility; F10.10 Alcohol abuse, uncomplicated; G93.41 Metabolic encephalopathy; R47.1 Dysarthria and anarthria; Z68.1 Body mass index [BMI] 19.9 or less, adult; Z82.49 Family history of ischemic heart disease and other diseases of the circulatory system; Z86.73 Personal history of transient ischemic attack (TIA), and cerebral infarction without residual deficits; Y90.0 Blood alcohol level of less than 20 mg/100 ml
CPT/HCPCS: 36415; 70450; 71045; 71250; 74176; 80048; 80053; 80061; 80307; 80320; 81001; 82140; 82306; 82728; 83036; 83605; 83615; 83735; 83880; 84443; 84484; 85025; 85379; 85610; 85730; 86141; 87426; 93005; 93306; 93970; 94640; 97110; 97116; 97530; G0378; J0696

== ENCOUNTER 2023-10-17 14:08 | Emergency (ER) | payer MEDICAID ==
[~2023-10-17] VITALS: Ht 185.4 cm; Wt 63.6 kg
[~2023-10-17 14:08] MED LIST changes: +ALBUAER3 IN; +ASCO10003 PO; +ATOR10TA PO; +DOXY-286 PO; -LISI20TA28 PO; +LISI20TA56 PO; +PRED20TA2 PO; -TAM04C PO; +TAMS-35 PO; +ZINC220T6 PO
[2023-10-17 15:16] LABS: Chloride 106 mmol/L (98-107); Potassium 4.6 mmol/L (3.5-5.1); Sodium 141 mmol/L (136-145)
[2023-10-17 15:17] LABS: Anion Gap 5 (5-15); Calcium 10.2 mg/dL (8.5-10.1); Carbon Dioxide 30 mmol/L (20-30)
[2023-10-17 15:22] LABS: Blood Urea Nitrogen 45 mg/dL (9-23); Glucose 87 mg/dL (74-106)
[2023-10-17 15:24] LABS: Basophils # (auto) 0 10 ^3/uL (0-0.2); Basophils % (auto) 0.5 % (0.0-2.0); Eosinophils # (auto) 0.1 10 ^3/uL (0-0.8); Hemoglobin 12.9 g/dL (13.5-17.5); Lymphocytes # (auto) 1.3 10 ^3/uL (0.4-5.4); Lymphocytes % (auto) 26.4 % (10.0-50.0); Mean Corpuscular Hemoglobin 30.7 pg (28.0-32.0); Mean Corpuscular Hgb Conc. 33.2 g/dL (32.0-36.0); Mean Corpuscular Volume 92.5 fL (80.0-100.0); Monocytes # (auto) 0.3 10 ^3/uL (0-1.3); Monocytes % (auto) 6.2 % (0.0-12.0); Neutrophils # (auto) 3.3 10 ^3/uL (1.6-8.6); Neutrophils % (auto) 64.9 % (37.0-80.0); Red Blood Cells 4.21 10^6/uL (4.5-5.90); Red Cell Distribution Width 15.1 % (11.8-14.3)
[2023-10-17] MEDS ORDERED: DEXTROSE (50%) 50ML SYRG IV PRN (17:15)
[2023-10-17 18:18] VITALS: BP 131/91; PULSE 82; RESP 20; TEMP 98.4; O2SAT 100
[2023-10-17 18:21] LABS: Rapid Influenza A Negative (Negative); Rapid Influenza B Negative (Negative)
[2023-10-17 18:22] LABS: COVID19 ANTIGEN SOFIA FIA NEGATIVE (NEGATIVE)
[2023-10-17] MEDS ORDERED: InsuLIN REG 1unit/0.01ml Soln (100units/ml) SC SCH (22:00)
[2023-10-17] MEDS ORDERED: ACCU-CHEK COMFORT CURVE STRIP VI SCH (22:00)
== END 2023-10-17 18:20 | disposition home or self-care (01) ==
LOC: ER 14:08
DX: R53.1 Weakness (principal); E11.9 Type 2 diabetes mellitus without complications; E78.5 Hyperlipidemia, unspecified; I10 Essential (primary) hypertension; F12.10 Cannabis abuse, uncomplicated; Z87.891 Personal history of nicotine dependence; Z20.822 Contact with and (suspected) exposure to COVID-19; Z86.73 Personal history of transient ischemic attack (TIA), and cerebral infarction without residual deficits
CPT/HCPCS: 36415; 71045; 80048; 82962; 83605; 83880; 84484; 85025; 87040; 87426; 87804; 93005

== ENCOUNTER 2023-11-10 08:47 | Inpatient (IN) | payer MEDICAID ==
[~2023-11-10] VITALS: Ht 170.2 cm; Wt 65.1 kg
[~2023-11-10 08:47] MED LIST changes: +ALBU108A5 IN; +APIX5TAB4 PO; +AZIT500T66 PO
[2023-11-10] MEDS: cefTRIAXone 1GM/50ML D5W 50 ML IV ONE (09:00)
[2023-11-10] MEDS: SODIUM CHLORIDE 0.9% 1,000 ML IV ONE ×3 (09:00→09:45)
[2023-11-10 09:12] LABS: Basophils # (auto) 0 10 ^3/uL (0-0.2); Basophils % (auto) 0.4 % (0.0-2.0); Eosinophils # (auto) 0 10 ^3/uL (0-0.8); Hematocrit 37.6 % (41.0-53.0); Hemoglobin 12.7 g/dL (13.5-17.5); Lymphocytes # (auto) 0.8 10 ^3/uL (0.4-5.4); Lymphocytes % (auto) 10.8 % (10.0-50.0); Mean Corpuscular Hemoglobin 30.8 pg (28.0-32.0); Mean Corpuscular Hgb Conc. 33.7 g/dL (32.0-36.0); Mean Corpuscular Volume 91.6 fL (80.0-100.0); Monocytes # (auto) 0.5 10 ^3/uL (0-1.3); Neutrophils # (auto) 6.5 10 ^3/uL (1.6-8.6); Neutrophils % (auto) 82.8 % (37.0-80.0); Nucleated Red Blood Cells % 0.1 %; Red Blood Cells 4.11 10^6/uL (4.5-5.90); Red Cell Distribution Width 15.6 % (11.8-14.3); White Blood Cell 7.8 10^3/uL (4.4-10.8)
[2023-11-10 09:20] VITALS: PULSE 120; RESP 31; O2SAT 94
[2023-11-10 09:29] LABS: Alanine Aminotransferase 44 U/L (7-40); Albumin 4.4 g/dL (3.2-4.8); Alkaline Phosphatase 65 U/L (46-116); Anion Gap 9 (5-15); Aspartate Aminotransferase 100 U/L (13-40); BUN/Creatinine Ratio 38.4 (10.0-20.0); Bilirubin, Total 0.6 mg/dL (0.2-1.0); Blood Urea Nitrogen 53 mg/dL (9-23); Calcium 9.1 mg/dL (8.5-10.1); Carbon Dioxide 26 mmol/L (20-30); Chloride 106 mmol/L (98-107); Glucose 111 mg/dL (74-106); Potassium 4.2 mmol/L (3.5-5.1); Sodium 141 mmol/L (136-145); Total Protein 6.9 g/dL (5.7-8.2)
[2023-11-10] MEDS: ACETAMINOPHEN 325 MG TAB PO ONE (09:43)
[2023-11-10] MEDS: PANTOPRAZOLE 40 MG/10 ML VIAL INJ IV ONE (09:47)
[2023-11-10 10:10] LABS: Lactic Acid w/Reflex 2.7 mmol/L (0.4-2.0)
[2023-11-10] MEDS: AZITHROMYCIN 500MG/ 250ML 250 ML IV ONE (10:19)
[2023-11-10] MEDS ORDERED: ONDANSETRON HCL 4 MG/2 ML VIAL IV PRN (11:15)
[2023-11-10] MEDS ORDERED: NITROGLYCERIN 0.4 MG SL TAB SL PRN (11:15)
[2023-11-10] MEDS ORDERED: ACETAMINOPHEN 325 MG TAB PO PRN (11:15)
[2023-11-10] MEDS ORDERED: DOCUSATE SOD 100 MG CAP PO PRN (11:15)
[2023-11-10] MEDS ORDERED: DEXTROSE (50%) 50ML SYRG IV PRN (11:15)
[2023-11-10] MEDS ORDERED: MORPHINE SULFATE INJ 2 MG/ml SYRG IV PRN (11:15)
[2023-11-10] MEDS ORDERED: HYDROcodone-ACET 5/325MG TAB PO PRN (11:15)
[2023-11-10] MEDS ORDERED: APIX5TAB PO (11:16)
[2023-11-10 11:18] LABS: Urine Bacteria NONE SEEN /hpf (None Seen); Urine Blood 3+ /uL (Negative); Urine Clarity Clear (Clear); Urine Color Yellow (Yellow); Urine Protein, UAD 1+ (Negative); Urine Specific Gravity 1.024 (1.001-1.035); Urine Urobilinogen Normal (Negative); Urine WBC 1 /hpf (0 - 3)
[2023-11-10] MEDS: InsuLIN REG 1unit/0.01ml Soln (100units/ml) SC SCH ×2 (11:30→22:00)
[2023-11-10] MEDS ORDERED: ALBUTEROL SULF 2.5 MG/0.5ML(0.5%) NEB SOLN NEB PRN (11:30)
[2023-11-10] MEDS ORDERED: IPRATROPIUM BROM 0.5 MG/2.5ML INH SOL NEB PRN (11:30)
[2023-11-10] MEDS: ACCU-CHEK COMFORT CURVE STRIP VI SCH (11:52)
[2023-11-10 13:12] VITALS: BP 115/72; PULSE 81; RESP 24; TEMP 99.7; O2SAT 94
[2023-11-10] MEDS: SODIUM CHLOR 0.9% PF (SALINE LOCK) 10ML VIAL/SYR IV SCH (14:09)
[2023-11-10 14:38] VITALS: O2SAT 94
[2023-11-10 16:10] LABS: Hematocrit 35.4 % (41.0-53.0); Hemoglobin 11.8 g/dL (13.5-17.5)
[2023-11-10 19:30] VITALS: PULSE 89; RESP 20; O2SAT 96
[2023-11-10 21:40] VITALS: O2SAT 98
[2023-11-10] MEDS: TAMSULOSIN HYDROCHLORIDE 0.4 MG CAP PO SCH (22:11)
[2023-11-10] MEDS: methylPREDNISolone SOD SUCC 40 MG/ML VL IV SCH (22:11)
[2023-11-11] VITALS (11 sets, daily range): BP systolic 89–107; BP diastolic 52–57; PULSE 66–89; RESP 16–17; TEMP 98.4; O2SAT 92–97
[2023-11-11 05:04] LABS: Basophils # (auto) 0 10 ^3/uL (0-0.2); Basophils % (auto) 0.2 % (0.0-2.0); Eosinophils # (auto) 0 10 ^3/uL (0-0.8); Hematocrit 35.9 % (41.0-53.0); Hemoglobin 11.9 g/dL (13.5-17.5); Lymphocytes # (auto) 0.6 10 ^3/uL (0.4-5.4); Lymphocytes % (auto) 9.4 % (10.0-50.0); Mean Corpuscular Hgb Conc. 33.2 g/dL (32.0-36.0); Mean Corpuscular Volume 93.6 fL (80.0-100.0); Monocytes # (auto) 0.2 10 ^3/uL (0-1.3); Monocytes % (auto) 2.8 % (0.0-12.0); Neutrophils # (auto) 5.7 10 ^3/uL (1.6-8.6); Neutrophils % (auto) 87.6 % (37.0-80.0); Red Blood Cells 3.84 10^6/uL (4.5-5.90); Red Cell Distribution Width 15.6 % (11.8-14.3); White Blood Cell 6.5 10^3/uL (4.4-10.8)
[2023-11-11 05:12] LABS: Alanine Aminotransferase 49 U/L (7-40); Albumin 3.7 g/dL (3.2-4.8); Alkaline Phosphatase 52 U/L (46-116); Anion Gap 6 (5-15); Aspartate Aminotransferase 166 U/L (13-40); BUN/Creatinine Ratio 23.8 (10.0-20.0); Bilirubin, Total 0.4 mg/dL (0.2-1.0); Calcium 8.9 mg/dL (8.7-10.4); Carbon Dioxide 24 mmol/L (20-30); Chloride 109 mmol/L (98-107); Glucose 126 mg/dL (74-106); Potassium 3.9 mmol/L (3.5-5.1); Sodium 139 mmol/L (136-145); Total Protein 6.5 g/dL (5.7-8.2)
[2023-11-11 05:20] LABS: Blood Urea Nitrogen 25 mg/dL (9-23)
[2023-11-11] MEDS: cefTRIAXone 1GM/50ML D5W 50 ML IV SCH (09:46)
[2023-11-11] MEDS: AZITHROMYCIN 500MG/ 250ML 250 ML IV SCH (10:22)
[2023-11-11] MEDS: SODIUM CHLORIDE 0.9% 500 ML IV SCH (18:15)
[2023-11-11] MEDS: EMPAGLIFLOZIN 10 MG TAB PO SCH (18:15)
[2023-11-11] MEDS: FUROSEMIDE 40 MG/4 ML VIAL IV SCH (18:55)
[2023-11-12] VITALS (10 sets, daily range): BP systolic 101–135; BP diastolic 63–81; PULSE 60–99; RESP 17–20; TEMP 97.9–99.4; O2SAT 91–100
[2023-11-12 05:10] LABS: Basophils # (auto) 0 10 ^3/uL (0-0.2); Basophils % (auto) 0.1 % (0.0-2.0); Eosinophils # (auto) 0 10 ^3/uL (0-0.8); Hematocrit 31.9 % (41.0-53.0); Hemoglobin 10.8 g/dL (13.5-17.5); Lymphocytes # (auto) 0.7 10 ^3/uL (0.4-5.4); Mean Corpuscular Hemoglobin 31.5 pg (28.0-32.0); Mean Corpuscular Volume 92.9 fL (80.0-100.0); Monocytes # (auto) 0.3 10 ^3/uL (0-1.3); Monocytes % (auto) 5.2 % (0.0-12.0); Neutrophils # (auto) 4.7 10 ^3/uL (1.6-8.6); Neutrophils % (auto) 81.7 % (37.0-80.0); Red Blood Cells 3.43 10^6/uL (4.5-5.90); Red Cell Distribution Width 15.5 % (11.8-14.3); White Blood Cell 5.8 10^3/uL (4.4-10.8)
[2023-11-12 05:24] LABS: Alanine Aminotransferase 48 U/L (7-40); Alkaline Phosphatase 46 U/L (46-116); Anion Gap 4 (5-15); Aspartate Aminotransferase 127 U/L (13-40); BUN/Creatinine Ratio 24.3 (10.0-20.0); Blood Urea Nitrogen 27 mg/dL (9-23); Calcium 8.9 mg/dL (8.7-10.4); Carbon Dioxide 27 mmol/L (20-30); Chloride 110 mmol/L (98-107); Glucose 93 mg/dL (74-106); Potassium 3.9 mmol/L (3.5-5.1); Sodium 141 mmol/L (136-145)
[2023-11-12 05:25] LABS: Albumin 3.4 g/dL (3.2-4.8); Bilirubin, Total 0.4 mg/dL (0.2-1.0); Total Protein 5.9 g/dL (5.7-8.2)
[2023-11-12 05:27] LABS: INR 1.02 (0.9-1.15); Partial Thromboplastin Time 29.3 SEC (24.5-34.5); Prothrombin Time 10.7 sec (9.3-11.8)
[2023-11-12] MEDS: PANTOPRAZOLE 40 MG/10 ML VIAL INJ IV SCH (10:27)
[2023-11-12] MEDS ORDERED: SODIUM CHLORIDE LOCK 10 ML ONE (13:53)
[2023-11-12] MEDS ORDERED: LIDOCAINE 2%HCL (LOCAL ANESTH.) INJ 20ML MDV ONE (13:53)
[2023-11-12] MEDS: fentaNYL CITRATE 100 MCG/2 ML VL ONE (13:57)
[2023-11-12] MEDS: MIDAZOLAM HCL 5 MG/ML-1ML VIAL ONE (13:57)
[2023-11-12] MEDS: diphenhdrAMINE HCL 50 MG/1 ML VL ONE (13:58)
[2023-11-12] MEDS ORDERED: PROPOFOL 10 MG/ML 20 ML IV ONE (14:14)
[2023-11-12 18:47] LABS: COVID19 ANTIGEN SOFIA FIA NEGATIVE (NEGATIVE); Rapid Influenza A Negative (Negative)
[2023-11-12 18:49] LABS: Rapid Influenza B Positive (Negative)
[2023-11-13] VITALS (8 sets, daily range): BP systolic 96–145; BP diastolic 61–76; PULSE 79–97; RESP 16–20; TEMP 97.3–99.4; O2SAT 90–97
[2023-11-13 06:00] LABS: Basophils # (auto) 0 10 ^3/uL (0-0.2); Basophils % (auto) 0.1 % (0.0-2.0); Eosinophils # (auto) 0 10 ^3/uL (0-0.8); Hematocrit 36.7 % (41.0-53.0); Hemoglobin 12.3 g/dL (13.5-17.5); Lymphocytes # (auto) 0.8 10 ^3/uL (0.4-5.4); Lymphocytes % (auto) 13.9 % (10.0-50.0); Mean Corpuscular Hemoglobin 31.1 pg (28.0-32.0); Mean Corpuscular Hgb Conc. 33.6 g/dL (32.0-36.0); Mean Corpuscular Volume 92.6 fL (80.0-100.0); Monocytes # (auto) 0.6 10 ^3/uL (0-1.3); Monocytes % (auto) 9.4 % (0.0-12.0); Neutrophils # (auto) 4.5 10 ^3/uL (1.6-8.6); Neutrophils % (auto) 76.6 % (37.0-80.0); Red Blood Cells 3.96 10^6/uL (4.5-5.90); Red Cell Distribution Width 15.3 % (11.8-14.3); White Blood Cell 5.9 10^3/uL (4.4-10.8)
[2023-11-13 06:19] LABS: Alanine Aminotransferase 54 U/L (7-40); Alkaline Phosphatase 60 U/L (46-116); Anion Gap 10 (5-15); BUN/Creatinine Ratio 19.5 (10.0-20.0); Blood Urea Nitrogen 36 mg/dL (9-23); Calcium 9.3 mg/dL (8.5-10.1); Carbon Dioxide 28 mmol/L (20-30); Chloride 103 mmol/L (98-107); Glucose 95 mg/dL (74-106); Potassium 3.3 mmol/L (3.5-5.1); Sodium 141 mmol/L (136-145)
[2023-11-13 06:20] LABS: Albumin 4.2 g/dL (3.2-4.8); Aspartate Aminotransferase 105 U/L (13-40)
[2023-11-13 06:21] LABS: Bilirubin, Total 0.5 mg/dL (0.2-1.0); Total Protein 7.1 g/dL (5.7-8.2)
[2023-11-13] MEDS: POTASSIUM CHL 20MEQ/100ML 100 ML IV ONE (09:37)
[2023-11-13] MEDS ORDERED: DEXTROSE (50%) 50ML SYRG IV PRN (18:45)
[2023-11-13] MEDS: D5W/SOD CHL 0.45% 250 ML IV SCH (18:58)
[2023-11-13] MEDS: InsuLIN REG 1unit/0.01ml Soln (100units/ml) SC SCH (20:00)
[2023-11-13] MEDS: ACCU-CHEK COMFORT CURVE STRIP VI SCH (21:00)
[2023-11-13] MEDS: OSELTAMIVIR 75 MG CAP PO ONE (21:03)
[2023-11-14] VITALS (10 sets, daily range): BP systolic 97–115; BP diastolic 50–68; PULSE 54–95; RESP 14–20; TEMP 97.6–98.2; O2SAT 91–100
[2023-11-14 06:03] LABS: Basophils # (auto) 0 10 ^3/uL (0-0.2); Basophils % (auto) 0.1 % (0.0-2.0); Eosinophils # (auto) 0 10 ^3/uL (0-0.8); Hematocrit 38.5 % (41.0-53.0); Hemoglobin 12.7 g/dL (13.5-17.5); Lymphocytes # (auto) 1.2 10 ^3/uL (0.4-5.4); Lymphocytes % (auto) 12.5 % (10.0-50.0); Mean Corpuscular Hemoglobin 30.8 pg (28.0-32.0); Mean Corpuscular Hgb Conc. 32.9 g/dL (32.0-36.0); Mean Corpuscular Volume 93.8 fL (80.0-100.0); Monocytes # (auto) 0.7 10 ^3/uL (0-1.3); Neutrophils # (auto) 7.5 10 ^3/uL (1.6-8.6); Neutrophils % (auto) 80.4 % (37.0-80.0); Red Blood Cells 4.11 10^6/uL (4.5-5.90); Red Cell Distribution Width 15.4 % (11.8-14.3); White Blood Cell 9.3 10^3/uL (4.4-10.8)
[2023-11-14 06:29] LABS: Alanine Aminotransferase 47 U/L (7-40); Albumin 4.4 g/dL (3.2-4.8); Alkaline Phosphatase 61 U/L (46-116); Anion Gap 8 (5-15); Aspartate Aminotransferase 66 U/L (13-40); BUN/Creatinine Ratio 21.6 (10.0-20.0); Blood Urea Nitrogen 38 mg/dL (9-23); Calcium 9.3 mg/dL (8.5-10.1); Carbon Dioxide 31 mmol/L (20-30); Chloride 105 mmol/L (98-107); Glucose 124 mg/dL (74-106); Potassium 3.5 mmol/L (3.5-5.1); Sodium 144 mmol/L (136-145)
[2023-11-14 06:30] LABS: Bilirubin, Total 0.8 mg/dL (0.2-1.0); Total Protein 7.5 g/dL (5.7-8.2)
[2023-11-14] MEDS: OSELTAMIVIR 30 MG CAP PO SCH (08:57)
[2023-11-14] MEDS ORDERED: Glucerna 1.2 Cal 1Liter BOTTLE GT SCH (20:30)
[2023-11-15] VITALS (11 sets, daily range): BP systolic 103–110; BP diastolic 65–71; PULSE 50–69; RESP 16–20; TEMP 97–98.6; O2SAT 92–96
[2023-11-15 06:11] LABS: Basophils # (auto) 0 10 ^3/uL (0-0.2); Eosinophils # (auto) 0 10 ^3/uL (0-0.8); Hematocrit 36.2 % (41.0-53.0); Hemoglobin 11.6 g/dL (13.5-17.5); Lymphocytes # (auto) 0.9 10 ^3/uL (0.4-5.4); Lymphocytes % (auto) 11.3 % (10.0-50.0); Mean Corpuscular Hemoglobin 30.1 pg (28.0-32.0); Mean Corpuscular Hgb Conc. 32.1 g/dL (32.0-36.0); Mean Corpuscular Volume 93.7 fL (80.0-100.0); Monocytes # (auto) 0.4 10 ^3/uL (0-1.3); Neutrophils # (auto) 6.6 10 ^3/uL (1.6-8.6); Neutrophils % (auto) 83.7 % (37.0-80.0); Nucleated Red Blood Cells % 0.1 %; Red Blood Cells 3.87 10^6/uL (4.5-5.90); Red Cell Distribution Width 15.4 % (11.8-14.3); White Blood Cell 7.9 10^3/uL (4.4-10.8)
[2023-11-15 06:16] LABS: Alanine Aminotransferase 43 U/L (7-40); Alkaline Phosphatase 56 U/L (46-116); Anion Gap 8 (5-15); BUN/Creatinine Ratio 23.8 (10.0-20.0); Blood Urea Nitrogen 31 mg/dL (9-23); Carbon Dioxide 27 mmol/L (20-30); Chloride 110 mmol/L (98-107); Glucose 109 mg/dL (74-106); Sodium 145 mmol/L (136-145)
[2023-11-15 06:17] LABS: Aspartate Aminotransferase 44 U/L (13-40); Bilirubin, Total 0.5 mg/dL (0.2-1.0); Total Protein 7.1 g/dL (5.7-8.2)
[2023-11-15] MEDS ORDERED: CLINIMIX PER PHARMACY 0 ML IV SCH (15:30)
[2023-11-15] MEDS: AMINO ACID INFUSION IN D10W 1,000 ML IV SCH (20:33)
[2023-11-16] VITALS (8 sets, daily range): BP systolic 104–139; BP diastolic 57–83; PULSE 54–80; RESP 16–20; TEMP 97.9–98.9; O2SAT 92–100
[2023-11-16 05:46] LABS: Basophils # (auto) 0 10 ^3/uL (0-0.2); Basophils % (auto) 0.1 % (0.0-2.0); Eosinophils # (auto) 0 10 ^3/uL (0-0.8); Eosinophils % (auto) 0.1 % (0.0-7.0); Hematocrit 36.4 % (41.0-53.0); Hemoglobin 12.1 g/dL (13.5-17.5); Lymphocytes # (auto) 1.5 10 ^3/uL (0.4-5.4); Lymphocytes % (auto) 14.4 % (10.0-50.0); Mean Corpuscular Hemoglobin 30.9 pg (28.0-32.0); Mean Corpuscular Hgb Conc. 33.2 g/dL (32.0-36.0); Mean Corpuscular Volume 93.1 fL (80.0-100.0); Monocytes # (auto) 0.8 10 ^3/uL (0-1.3); Monocytes % (auto) 7.4 % (0.0-12.0); Neutrophils # (auto) 8.2 10 ^3/uL (1.6-8.6); Nucleated Red Blood Cells % 0.1 %; Red Cell Distribution Width 15.3 % (11.8-14.3); White Blood Cell 10.4 10^3/uL (4.4-10.8)
[2023-11-16 06:06] LABS: Alanine Aminotransferase 45 U/L (7-40); Albumin 4.1 g/dL (3.2-4.8); Alkaline Phosphatase 62 U/L (46-116); Anion Gap 8 (5-15); Aspartate Aminotransferase 36 U/L (13-40); BUN/Creatinine Ratio 29.7 (10.0-20.0); Calcium 9.6 mg/dL (8.7-10.4); Carbon Dioxide 29 mmol/L (20-30); Chloride 107 mmol/L (98-107); Glucose 107 mg/dL (74-106); Magnesium 2.3 mg/dL (1.6-2.6); Potassium 3.2 mmol/L (3.5-5.1); Sodium 144 mmol/L (136-145)
[2023-11-16 06:07] LABS: Bilirubin, Total 0.4 mg/dL (0.2-1.0); Total Protein 7.3 g/dL (5.7-8.2)
[2023-11-16 06:13] LABS: Blood Urea Nitrogen 43 mg/dL (9-23)
[2023-11-16 08:14] LABS: Base Excess 3.8 mmol/L (-2.0-2.0)
[2023-11-16] MEDS: POTASSIUM CHL 20MEQ/100ML 100 ML IV SCH (09:32)
[2023-11-16] MEDS: FUROSEMIDE 40 MG/4 ML VIAL IV ONE (14:29)
[2023-11-16] MEDS: POTASSIUM CHL 20MEQ/100ML 100 ML IV ONE (14:39)
[2023-11-16] MEDS ORDERED: HEPARIN SODIUM (PORCINE) 5000 UNITS/ML 1ML VIAL SC SCH (22:00)
[2023-11-17] VITALS (8 sets, daily range): BP systolic 103–122; BP diastolic 66–80; PULSE 76–85; RESP 16–20; TEMP 98–99.2; O2SAT 94–98
[2023-11-17 06:23] LABS: Basophils # (auto) 0 10 ^3/uL (0-0.2); Basophils % (auto) 0.1 % (0.0-2.0); Eosinophils # (auto) 0 10 ^3/uL (0-0.8); Eosinophils % (auto) 0.6 % (0.0-7.0); Hematocrit 37.2 % (41.0-53.0); Hemoglobin 12.4 g/dL (13.5-17.5); Lymphocytes # (auto) 1.1 10 ^3/uL (0.4-5.4); Lymphocytes % (auto) 15.2 % (10.0-50.0); Mean Corpuscular Hemoglobin 31.1 pg (28.0-32.0); Mean Corpuscular Hgb Conc. 33.4 g/dL (32.0-36.0); Mean Corpuscular Volume 93.3 fL (80.0-100.0); Monocytes # (auto) 0.6 10 ^3/uL (0-1.3); Monocytes % (auto) 9.1 % (0.0-12.0); Neutrophils # (auto) 5.2 10 ^3/uL (1.6-8.6); Red Blood Cells 3.99 10^6/uL (4.5-5.90); Red Cell Distribution Width 15.4 % (11.8-14.3); White Blood Cell 6.9 10^3/uL (4.4-10.8)
[2023-11-17 06:46] LABS: Alanine Aminotransferase 48 U/L (7-40); Albumin 4.3 g/dL (3.2-4.8); Alkaline Phosphatase 63 U/L (46-116); Anion Gap 9 (5-15); Aspartate Aminotransferase 32 U/L (13-40); BUN/Creatinine Ratio 27.5 (10.0-20.0); Bilirubin, Total 0.6 mg/dL (0.2-1.0); Blood Urea Nitrogen 39 mg/dL (9-23); Calcium 9.7 mg/dL (8.7-10.4); Carbon Dioxide 27 mmol/L (20-30); Chloride 107 mmol/L (98-107); Glucose 109 mg/dL (74-106); Potassium 3.2 mmol/L (3.5-5.1); Sodium 143 mmol/L (136-145); Total Protein 7.7 g/dL (5.7-8.2)
[2023-11-17] MEDS: POTASSIUM CHL 20MEQ/100ML 100 ML IV ONE (09:17)
[2023-11-17] MEDS: ENOXAPARIN SOD 40 MG/0.4 ML SYRINGE SC SCH (20:38)
[2023-11-18] VITALS (8 sets, daily range): BP systolic 103–126; BP diastolic 66–84; PULSE 65–93; RESP 15–20; TEMP 97.6–99; O2SAT 2–95
[2023-11-18 10:05] LABS: Basophils # (auto) 0 10 ^3/uL (0-0.2); Basophils % (auto) 0.3 % (0.0-2.0); Eosinophils # (auto) 0.1 10 ^3/uL (0-0.8); Eosinophils % (auto) 1.7 % (0.0-7.0); Hematocrit 37.5 % (41.0-53.0); Hemoglobin 12.3 g/dL (13.5-17.5); Lymphocytes # (auto) 1.2 10 ^3/uL (0.4-5.4); Lymphocytes % (auto) 14.2 % (10.0-50.0); Mean Corpuscular Hemoglobin 30.9 pg (28.0-32.0); Mean Corpuscular Hgb Conc. 32.8 g/dL (32.0-36.0); Mean Corpuscular Volume 94.2 fL (80.0-100.0); Monocytes # (auto) 0.6 10 ^3/uL (0-1.3); Monocytes % (auto) 7.8 % (0.0-12.0); Neutrophils # (auto) 6.2 10 ^3/uL (1.6-8.6); Red Blood Cells 3.98 10^6/uL (4.5-5.90); White Blood Cell 8.1 10^3/uL (4.4-10.8)
[2023-11-18 10:23] LABS: Alanine Aminotransferase 47 U/L (7-40); Albumin 4.2 g/dL (3.2-4.8); Alkaline Phosphatase 72 U/L (46-116); Anion Gap 8 (5-15); Aspartate Aminotransferase 36 U/L (13-40); BUN/Creatinine Ratio 25.2 (10.0-20.0); Bilirubin, Total 0.7 mg/dL (0.2-1.0); Blood Urea Nitrogen 31 mg/dL (9-23); Calcium 9.5 mg/dL (8.5-10.1); Carbon Dioxide 26 mmol/L (20-30); Chloride 109 mmol/L (98-107); Glucose 106 mg/dL (74-106); Phosphorus 2.7 mg/dL (2.4-5.1); Sodium 143 mmol/L (136-145); Total Protein 7.5 g/dL (5.7-8.2)
[2023-11-18] MEDS: ACCU-CHEK COMFORT CURVE STRIP VI SCH (10:38)
[2023-11-18] MEDS: InsuLIN REG 1unit/0.01ml Soln (100units/ml) SC SCH (10:39)
[2023-11-18 11:19] LABS: Magnesium 2.3 mg/dL (1.6-2.6)
[2023-11-19 05:00] VITALS: BP 106/64; PULSE 77; RESP 16; TEMP 98.4; O2SAT 97
[2023-11-19 06:08] LABS: Basophils # (auto) 0 10 ^3/uL (0-0.2); Basophils % (auto) 0.3 % (0.0-2.0); Eosinophils # (auto) 0.1 10 ^3/uL (0-0.8); Eosinophils % (auto) 1.7 % (0.0-7.0); Hematocrit 37.9 % (41.0-53.0); Hemoglobin 12.6 g/dL (13.5-17.5); Lymphocytes # (auto) 1.2 10 ^3/uL (0.4-5.4); Lymphocytes % (auto) 15.7 % (10.0-50.0); Mean Corpuscular Hemoglobin 30.9 pg (28.0-32.0); Mean Corpuscular Hgb Conc. 33.3 g/dL (32.0-36.0); Mean Corpuscular Volume 92.7 fL (80.0-100.0); Monocytes # (auto) 0.5 10 ^3/uL (0-1.3); Monocytes % (auto) 7.1 % (0.0-12.0); Neutrophils # (auto) 5.5 10 ^3/uL (1.6-8.6); Neutrophils % (auto) 75.2 % (37.0-80.0); Red Blood Cells 4.09 10^6/uL (4.5-5.90); White Blood Cell 7.3 10^3/uL (4.4-10.8)
[2023-11-19 06:28] LABS: Alanine Aminotransferase 43 U/L (7-40); Albumin 4.4 g/dL (3.2-4.8); Alkaline Phosphatase 84 U/L (46-116); Anion Gap 12 (5-15); Aspartate Aminotransferase 24 U/L (13-40); BUN/Creatinine Ratio 26.8 (10.0-20.0); Blood Urea Nitrogen 40 mg/dL (9-23); Carbon Dioxide 23 mmol/L (20-30); Chloride 109 mmol/L (98-107); Glucose 109 mg/dL (74-106); Magnesium 2.3 mg/dL (1.6-2.6); Potassium 3.4 mmol/L (3.5-5.1); Sodium 144 mmol/L (136-145)
[2023-11-19 06:29] LABS: Bilirubin, Total 0.8 mg/dL (0.2-1.0); Phosphorus 3.5 mg/dL (2.4-5.1); Total Protein 8.2 g/dL (5.7-8.2)
[2023-11-19] MEDS ORDERED: FLUMAZENIL 0.1 MG/ML INJ 10ML MDV IV ONE (08:07)
[2023-11-19] MEDS ORDERED: NALOXONE HCL 0.4 MG/ML VIAL ONE (08:07)
[2023-11-19 08:30] VITALS: BP 105/73; PULSE 78; RESP 17; TEMP 98; O2SAT 97
[2023-11-19] MEDS: POTASSIUM CHL 20MEQ/100ML 100 ML IV ONE (10:18)
[2023-11-19 10:23] VITALS: O2SAT 97
[2023-11-19] MEDS: ceFAZolin 1GM/50ML 50 ML IV ONE ×2 (12:00→13:17)
[2023-11-19] MEDS ORDERED: PROPOFOL 10 MG/ML 20 ML IV ONE (13:17)
[2023-11-19] MEDS ORDERED: fentaNYL CITRATE 100 MCG/2 ML VL ONE (13:17)
[2023-11-19 13:50] VITALS: O2SAT 96
[2023-11-19 17:00] VITALS: BP 105/74; PULSE 68; RESP 17; TEMP 98.1; O2SAT 95
[2023-11-19 20:00] VITALS: BP 127/84; PULSE 76; PULSE 78; RESP 16; TEMP 97.9; O2SAT 98
[2023-11-20] VITALS (9 sets, daily range): BP systolic 108–120; BP diastolic 65–81; PULSE 70–82; RESP 16–20; TEMP 97.4–98; O2SAT 91–100
[2023-11-20] MEDS: ENSURE CLEAR Apple 8oz Carton PO SCH (06:00)
[2023-11-20 06:55] LABS: Basophils # (auto) 0 10 ^3/uL (0-0.2); Basophils % (auto) 0.4 % (0.0-2.0); Eosinophils # (auto) 0.1 10 ^3/uL (0-0.8); Eosinophils % (auto) 1.5 % (0.0-7.0); Lymphocytes # (auto) 1.4 10 ^3/uL (0.4-5.4); Lymphocytes % (auto) 16.1 % (10.0-50.0); Mean Corpuscular Hemoglobin 31.1 pg (28.0-32.0); Mean Corpuscular Hgb Conc. 32.4 g/dL (32.0-36.0); Monocytes # (auto) 0.6 10 ^3/uL (0-1.3); Monocytes % (auto) 6.4 % (0.0-12.0); Neutrophils # (auto) 6.5 10 ^3/uL (1.6-8.6); Neutrophils % (auto) 75.6 % (37.0-80.0); Red Blood Cells 4.48 10^6/uL (4.5-5.90); Red Cell Distribution Width 14.9 % (11.8-14.3); White Blood Cell 8.6 10^3/uL (4.4-10.8)
[2023-11-20 07:24] LABS: Alanine Aminotransferase 37 U/L (7-40); Albumin 4.8 g/dL (3.2-4.8); Alkaline Phosphatase 107 U/L (46-116); Anion Gap 12 (5-15); Aspartate Aminotransferase 26 U/L (13-40); BUN/Creatinine Ratio 27.2 (10.0-20.0); Bilirubin, Total 0.9 mg/dL (0.2-1.0); Blood Urea Nitrogen 44 mg/dL (9-23); Calcium 10.5 mg/dL (8.5-10.1); Carbon Dioxide 24 mmol/L (20-30); Chloride 108 mmol/L (98-107); Glucose 115 mg/dL (74-106); Phosphorus 3.5 mg/dL (2.4-5.1); Sodium 144 mmol/L (136-145); Total Protein 8.7 g/dL (5.7-8.2)
[2023-11-20 07:44] LABS: Magnesium 2.6 mg/dL (1.6-2.6)
[2023-11-21] VITALS (9 sets, daily range): BP systolic 102–124; BP diastolic 66–84; PULSE 60–94; RESP 16–20; TEMP 97.1–98.6; O2SAT 91–98
[2023-11-21 06:10] LABS: Basophils # (auto) 0 10 ^3/uL (0-0.2); Basophils % (auto) 0.4 % (0.0-2.0); Eosinophils # (auto) 0.2 10 ^3/uL (0-0.8); Eosinophils % (auto) 2.1 % (0.0-7.0); Hematocrit 38.4 % (41.0-53.0); Hemoglobin 12.6 g/dL (13.5-17.5); Lymphocytes # (auto) 1.6 10 ^3/uL (0.4-5.4); Lymphocytes % (auto) 21.1 % (10.0-50.0); Mean Corpuscular Hemoglobin 30.7 pg (28.0-32.0); Mean Corpuscular Hgb Conc. 32.8 g/dL (32.0-36.0); Mean Corpuscular Volume 93.5 fL (80.0-100.0); Monocytes # (auto) 0.6 10 ^3/uL (0-1.3); Monocytes % (auto) 7.6 % (0.0-12.0); Neutrophils # (auto) 5.2 10 ^3/uL (1.6-8.6); Neutrophils % (auto) 68.8 % (37.0-80.0); Nucleated Red Blood Cells % 0.1 %; Red Blood Cells 4.11 10^6/uL (4.5-5.90); Red Cell Distribution Width 14.9 % (11.8-14.3); White Blood Cell 7.5 10^3/uL (4.4-10.8)
[2023-11-21 06:30] LABS: Alanine Aminotransferase 43 U/L (7-40); Albumin 4.5 g/dL (3.2-4.8); Alkaline Phosphatase 119 U/L (46-116); Anion Gap 10 (5-15); Aspartate Aminotransferase 37 U/L (13-40); Bilirubin, Total 0.7 mg/dL (0.2-1.0); Blood Urea Nitrogen 42 mg/dL (9-23); Calcium 10.1 mg/dL (8.7-10.4); Carbon Dioxide 22 mmol/L (20-30); Chloride 109 mmol/L (98-107); Glucose 125 mg/dL (74-106); Phosphorus 2.8 mg/dL (2.4-5.1); Potassium 2.9 mmol/L (3.5-5.1); Sodium 141 mmol/L (136-145); Total Protein 8.2 g/dL (5.7-8.2)
[2023-11-21 06:58] LABS: BUN/Creatinine Ratio 30.4 (10.0-20.0)
[2023-11-21 06:59] LABS: Magnesium 2.3 mg/dL (1.6-2.6)
[2023-11-21] MEDS: FUROSEMIDE 40 MG TAB PO SCH (10:00)
[2023-11-21] MEDS: POTASSIUM CHL 20MEQ/100ML 100 ML IV SCH (11:17)
[2023-11-21] MEDS: DEXTROSE (50%) 50ML SYRG IV SCH (13:30)
[2023-11-21] MEDS: POTASSIUM CHL 20MEQ/100ML 100 ML IV ONE (17:34)
[2023-11-21] MEDS: ENSURE CLEAR Apple 8oz Carton PEG SCH (18:00)
[2023-11-22] VITALS (9 sets, daily range): BP systolic 98–113; BP diastolic 62–78; PULSE 68–96; RESP 16–21; TEMP 97–98.3; O2SAT 94–98
[2023-11-22 06:17] LABS: Basophils # (auto) 0 10 ^3/uL (0-0.2); Basophils % (auto) 0.4 % (0.0-2.0); Eosinophils # (auto) 0.2 10 ^3/uL (0-0.8); Eosinophils % (auto) 2.1 % (0.0-7.0); Hematocrit 38.8 % (41.0-53.0); Hemoglobin 12.5 g/dL (13.5-17.5); Lymphocytes # (auto) 1.6 10 ^3/uL (0.4-5.4); Lymphocytes % (auto) 22.9 % (10.0-50.0); Mean Corpuscular Hemoglobin 30.5 pg (28.0-32.0); Mean Corpuscular Hgb Conc. 32.4 g/dL (32.0-36.0); Mean Corpuscular Volume 94.1 fL (80.0-100.0); Monocytes # (auto) 0.7 10 ^3/uL (0-1.3); Monocytes % (auto) 10.5 % (0.0-12.0); Neutrophils # (auto) 4.5 10 ^3/uL (1.6-8.6); Neutrophils % (auto) 64.1 % (37.0-80.0); Nucleated Red Blood Cells % 0.1 %; Red Blood Cells 4.12 10^6/uL (4.5-5.90); Red Cell Distribution Width 15.1 % (11.8-14.3); White Blood Cell 7.1 10^3/uL (4.4-10.8)
[2023-11-22 06:30] LABS: Anion Gap 10 (5-15); Calcium 9.9 mg/dL (8.7-10.4); Carbon Dioxide 21 mmol/L (20-30); Chloride 111 mmol/L (98-107); Potassium 4.2 mmol/L (3.5-5.1); Sodium 142 mmol/L (136-145)
[2023-11-22 06:36] LABS: BUN/Creatinine Ratio 26.2 (10.0-20.0); Blood Urea Nitrogen 34 mg/dL (9-23); Magnesium 2.3 mg/dL (1.6-2.6)
[2023-11-22 07:03] LABS: Glucose 78 mg/dL (74-106)
[2023-11-22] MEDS: ENSURE CLEAR Apple 8oz Carton PEG SCH ×2 (12:15→16:00)
[2023-11-23] VITALS (9 sets, daily range): BP systolic 91–110; BP diastolic 55–78; PULSE 57–91; RESP 16–20; TEMP 97.6–98.6; O2SAT 91–100
[2023-11-23 06:21] LABS: Basophils # (auto) 0 10 ^3/uL (0-0.2); Basophils % (auto) 0.6 % (0.0-2.0); Eosinophils # (auto) 0.1 10 ^3/uL (0-0.8); Eosinophils % (auto) 1.8 % (0.0-7.0); Hematocrit 37.8 % (41.0-53.0); Hemoglobin 12.2 g/dL (13.5-17.5); Lymphocytes # (auto) 1.3 10 ^3/uL (0.4-5.4); Mean Corpuscular Hemoglobin 30.3 pg (28.0-32.0); Mean Corpuscular Hgb Conc. 32.2 g/dL (32.0-36.0); Mean Corpuscular Volume 93.9 fL (80.0-100.0); Monocytes # (auto) 0.7 10 ^3/uL (0-1.3); Monocytes % (auto) 9.3 % (0.0-12.0); Neutrophils % (auto) 70.3 % (37.0-80.0); Nucleated Red Blood Cells % 0.3 %; Red Blood Cells 4.02 10^6/uL (4.5-5.90); Red Cell Distribution Width 15.2 % (11.8-14.3); White Blood Cell 7.1 10^3/uL (4.4-10.8)
[2023-11-23 07:12] LABS: Alanine Aminotransferase 34 U/L (7-40); Alkaline Phosphatase 112 U/L (46-116); Anion Gap 11 (5-15); Aspartate Aminotransferase 24 U/L (13-40); BUN/Creatinine Ratio 18.7 (10.0-20.0); Bilirubin, Total 0.5 mg/dL (0.2-1.0); Blood Urea Nitrogen 23 mg/dL (9-23); Calcium 9.3 mg/dL (8.7-10.4); Carbon Dioxide 17 mmol/L (20-30); Chloride 113 mmol/L (98-107); Glucose 114 mg/dL (74-106); Magnesium 2.3 mg/dL (1.6-2.6); Potassium 3.5 mmol/L (3.5-5.1); Sodium 141 mmol/L (136-145); Total Protein 7.7 g/dL (5.7-8.2)
[2023-11-23] MEDS ORDERED: EMPA1TAB PO (14:34)
[2023-11-23] MEDS ORDERED: FURO40TA4 PO (14:34)
[2023-11-24] VITALS (9 sets, daily range): BP systolic 90–121; BP diastolic 61–71; PULSE 81–104; RESP 16–21; TEMP 97–98.1; O2SAT 93–99
[2023-11-24 05:58] LABS: Chloride 108 mmol/L (98-107); Potassium 3.1 mmol/L (3.5-5.1); Sodium 138 mmol/L (136-145)
[2023-11-24 05:59] LABS: Anion Gap 12 (5-15); Calcium 9.7 mg/dL (8.7-10.4); Carbon Dioxide 18 mmol/L (20-30)
[2023-11-24 06:04] LABS: BUN/Creatinine Ratio 21.2 (10.0-20.0); Blood Urea Nitrogen 29 mg/dL (9-23); Glucose 116 mg/dL (74-106)
[2023-11-24 06:44] LABS: Basophils # (auto) 0.1 10 ^3/uL (0-0.2); Basophils % (auto) 0.6 % (0.0-2.0); Eosinophils # (auto) 0.1 10 ^3/uL (0-0.8); Eosinophils % (auto) 1.3 % (0.0-7.0); Hematocrit 38.1 % (41.0-53.0); Hemoglobin 12.5 g/dL (13.5-17.5); Lymphocytes # (auto) 1.5 10 ^3/uL (0.4-5.4); Lymphocytes % (auto) 15.7 % (10.0-50.0); Mean Corpuscular Hemoglobin 30.1 pg (28.0-32.0); Mean Corpuscular Hgb Conc. 32.8 g/dL (32.0-36.0); Mean Corpuscular Volume 91.9 fL (80.0-100.0); Monocytes # (auto) 0.7 10 ^3/uL (0-1.3); Monocytes % (auto) 7.8 % (0.0-12.0); Neutrophils # (auto) 7.1 10 ^3/uL (1.6-8.6); Neutrophils % (auto) 74.6 % (37.0-80.0); Nucleated Red Blood Cells % 0.1 %; Red Blood Cells 4.15 10^6/uL (4.5-5.90); Red Cell Distribution Width 14.7 % (11.8-14.3); White Blood Cell 9.5 10^3/uL (4.4-10.8)
[2023-11-24] MEDS: POTASSIUM EFFERVESENT TAB 25 MEQ GT ONE (12:39)
[2023-11-25] VITALS (8 sets, daily range): BP systolic 92–109; BP diastolic 50–71; PULSE 75–89; RESP 17–20; TEMP 98–100.3; O2SAT 94–97
[2023-11-26] VITALS (9 sets, daily range): BP systolic 88–109; BP diastolic 41–71; PULSE 50–89; RESP 16–20; TEMP 97.2–97.7; O2SAT 91–98
[2023-11-26] MEDS: SODIUM CHLORIDE 0.9% 1,000 ML IV SCH (10:18)
[2023-11-26 10:43] LABS: Alanine Aminotransferase 37 U/L (7-40); Albumin 4.1 g/dL (3.2-4.8); Alkaline Phosphatase 121 U/L (46-116); Anion Gap 9 (5-15); Aspartate Aminotransferase 28 U/L (13-40); BUN/Creatinine Ratio 22.4 (10.0-20.0); Bilirubin, Total 0.4 mg/dL (0.2-1.0); Blood Urea Nitrogen 24 mg/dL (9-23); Calcium 9.2 mg/dL (8.5-10.1); Carbon Dioxide 23 mmol/L (20-30); Chloride 103 mmol/L (98-107); Glucose 75 mg/dL (74-106); Potassium 3.1 mmol/L (3.5-5.1); Sodium 135 mmol/L (136-145); Total Protein 7.8 g/dL (5.7-8.2)
[2023-11-26 10:59] LABS: Hematocrit 36.1 % (41.0-53.0); Hemoglobin 11.8 g/dL (13.5-17.5); Mean Corpuscular Hemoglobin 30.4 pg (28.0-32.0); Mean Corpuscular Hgb Conc. 32.6 g/dL (32.0-36.0); Mean Corpuscular Volume 93.3 fL (80.0-100.0); Red Blood Cells 3.87 10^6/uL (4.5-5.90); Red Cell Distribution Width 14.7 % (11.8-14.3); White Blood Cell 7.5 10^3/uL (4.4-10.8)
[2023-11-26 11:02] LABS: Band Neutrophils % (manual) 0; Basophils % (manual) 0 (0.0-2.0); Blast Cells 0; Eosinophils % (manual) 0 (0-7); Metamyelocytes % 0; Promyelocytes % 0; Reactive Lymphocytes 0
[2023-11-26 11:20] LABS: Lymphocytes % (manual) 18 (10.0-50.0); Monocytes % (manual) 9 (0-12); Myelocytes % 1; Platelet Estimate Adequate; RBC Morphology Normal
[2023-11-26] MEDS: POTASSIUM CHLORIDE 40 MEQ, LIDOCAINE 1% (LOCAL ANESTH.) 4 ML in SODIUM CHL 0.9% 250 ML IV ONE (13:34)
[2023-11-27 01:00] VITALS: BP 94/60; PULSE 66; RESP 16; TEMP 98.3; O2SAT 98
[2023-11-27 05:00] VITALS: BP 89/49; PULSE 66; RESP 16; TEMP 98.6; O2SAT 98
[2023-11-27 06:57] LABS: Basophils # (auto) 0 10 ^3/uL (0-0.2); Basophils % (auto) 0.8 % (0.0-2.0); Eosinophils # (auto) 0.1 10 ^3/uL (0-0.8); Eosinophils % (auto) 1.4 % (0.0-7.0); Hematocrit 32.8 % (41.0-53.0); Hemoglobin 10.5 g/dL (13.5-17.5); Lymphocytes # (auto) 1.3 10 ^3/uL (0.4-5.4); Mean Corpuscular Hemoglobin 30.1 pg (28.0-32.0); Mean Corpuscular Hgb Conc. 32.1 g/dL (32.0-36.0); Monocytes # (auto) 0.5 10 ^3/uL (0-1.3); Monocytes % (auto) 8.1 % (0.0-12.0); Neutrophils # (auto) 4.1 10 ^3/uL (1.6-8.6); Neutrophils % (auto) 67.7 % (37.0-80.0); Nucleated Red Blood Cells % 0.1 %; Red Blood Cells 3.49 10^6/uL (4.5-5.90); Red Cell Distribution Width 14.9 % (11.8-14.3)
[2023-11-27 07:35] LABS: Alanine Aminotransferase 28 U/L (7-40); Alkaline Phosphatase 101 U/L (46-116); Anion Gap 8 (5-15); Aspartate Aminotransferase 22 U/L (13-40); BUN/Creatinine Ratio 21.1 (10.0-20.0); Blood Urea Nitrogen 20 mg/dL (9-23); Calcium 8.7 mg/dL (8.5-10.1); Carbon Dioxide 21 mmol/L (20-30); Chloride 108 mmol/L (98-107); Glucose 86 mg/dL (74-106); Potassium 3.5 mmol/L (3.5-5.1); Sodium 137 mmol/L (136-145)
[2023-11-27 07:36] LABS: Albumin 3.5 g/dL (3.2-4.8); Bilirubin, Total 0.4 mg/dL (0.2-1.0); Total Protein 6.6 g/dL (5.7-8.2)
[2023-11-27 08:00] VITALS: PULSE 74; RESP 20; O2SAT 99
[2023-11-27 09:00] VITALS: BP 99/52; PULSE 68; RESP 16; TEMP 97.6; O2SAT 96
[2023-11-27 10:00] VITALS: O2SAT 92
[2023-11-27 12:55] VITALS: BP 121/72; PULSE 70; RESP 16; TEMP 98.2; O2SAT 93
== END 2023-11-27 15:10 | disposition home or self-care (01) | DRG 242 ==
LOC: EDBD 08:47 → ER 08:47 → TELE-WESTW 11:10 → TELE 11:14 → TELE-WESTW 11-11 10:51 → WEST WING 11-26 18:38
PROVIDERS: ADMIT Internal Medicine Pulmonary Disease; ATTEND Internal Medicine Pulmonary Disease
PROC: 0CJY8ZZ Inspection of Mouth and Throat, Via Natural or Artificial Opening Endoscopic (ICD-10-PCS; principal; 2023-11-12 13:43)
PROC: 0DB98ZX Excision of Duodenum, Via Natural or Artificial Opening Endoscopic, Diagnostic (ICD-10-PCS; 2023-11-14)
PROC: 0DB68ZX Excision of Stomach, Via Natural or Artificial Opening Endoscopic, Diagnostic (ICD-10-PCS; 2023-11-14)
PROC: 0DH63UZ Insertion of Feeding Device into Stomach, Percutaneous Approach (ICD-10-PCS; 2023-11-19)
PROC: 0DJ08ZZ Inspection of Upper Intestinal Tract, Via Natural or Artificial Opening Endoscopic (ICD-10-PCS; 2023-11-19)
DX: K22.11 Ulcer of esophagus with bleeding (principal); I26.99 Other pulmonary embolism without acute cor pulmonale; J96.01 Acute respiratory failure with hypoxia; A41.9 Sepsis, unspecified organism; G93.41 Metabolic encephalopathy; E46 Unspecified protein-calorie malnutrition; I50.23 Acute on chronic systolic (congestive) heart failure; J15.69 Pneumonia due to other Gram-negative bacteria; I11.0 Hypertensive heart disease with heart failure; K74.60 Unspecified cirrhosis of liver; I21.A1 Myocardial infarction type 2; K44.9 Diaphragmatic hernia without obstruction or gangrene; K21.00 Gastro-esophageal reflux disease with esophagitis, without bleeding; R62.7 Adult failure to thrive; I25.10 Atherosclerotic heart disease of native coronary artery without angina pectoris; E11.9 Type 2 diabetes mellitus without complications; D50.0 Iron deficiency anemia secondary to blood loss (chronic); N17.9 Acute kidney failure, unspecified; E78.5 Hyperlipidemia, unspecified; K22.4 Dyskinesia of esophagus; E86.0 Dehydration; J10.1 Influenza due to other identified influenza virus with other respiratory manifestations; I69.30 Unspecified sequelae of cerebral infarction; Z68.22 Body mass index [BMI] 22.0-22.9, adult; Z74.01 Bed confinement status; Z82.49 Family history of ischemic heart disease and other diseases of the circulatory system; K29.90 Gastroduodenitis, unspecified, without bleeding; J15.9 Unspecified bacterial pneumonia
CPT/HCPCS: 36415; 36600; 71045; 76705; 78582; 80048; 80053; 81001; 82270; 82805; 82962; 83605; 83735; 83880; 84100; 84484; 85007; 85014; 85018; 85025; 85027; 85379; 85610; 85730; 87040; 87086; 87426; 87804; 92610; 93005; 93306; 93970; 94640; 96365; 96375; 99291; C9113; G0378; G9035; J1815; J2001; J2250; J2704; J3480

== ENCOUNTER 2023-12-20 14:48 | Inpatient (IN) | payer MEDICAID ==
[~2023-12-20] VITALS: Ht 193 cm; Wt 61.8 kg
[2023-12-20] VITALS (20 sets, daily range): BP systolic 62–137; BP diastolic 38–109; PULSE 75–141; RESP 16–39; TEMP 96.4–106.9; O2SAT 92–100
[2023-12-20] MEDS: MIDAZOLAM DRIP 50 mg/50mL 50 ML IV ONE (14:47)
[~2023-12-20 14:48] MED LIST changes: -APIX2.5T PO; +APIX5TAB PO; -APIX5TAB4 PO; -AZIT500T66 PO; +BACDST PO; -DOXY-286 PO; +EMPA1TAB PO; -ERGO1CAP23 PO; +FURO40TA4 PO; -PRED20TA2 PO; -TAMS0.4C36 PO; -ZINC220T6 PO
[2023-12-20] MEDS: ROCURONIUM 10MG/ML 10ML VIAL IV ONE ×2 (14:48→15:00)
[2023-12-20] MEDS: ETOMIDATE (2MG/ML) 20ML VIAL IV ONE ×2 (14:48→14:59)
[2023-12-20] MEDS: MIDAZOLAM DRIP 50 mg/50mL 50 ML IV SCH (15:00)
[2023-12-20] MEDS: IBUPROFEN 100MG/5ML ORAL SUSP 100 MG/5 ML UD GT ONE (15:19)
[2023-12-20] MEDS: ACETAMINOPHEN 650 MG RECT SUPP PR ONE (15:26)
[2023-12-20 15:39] LABS: Basophils # (auto) 0.1 10 ^3/uL (0-0.2); Basophils % (auto) 0.8 % (0.0-2.0); Eosinophils # (auto) 0 10 ^3/uL (0-0.8); Eosinophils % (auto) 0.5 % (0.0-7.0); Hematocrit 32.4 % (41.0-53.0); Hemoglobin 10.6 g/dL (13.5-17.5); Lymphocytes # (auto) 1.9 10 ^3/uL (0.4-5.4); Lymphocytes % (auto) 23.4 % (10.0-50.0); Mean Corpuscular Hgb Conc. 32.7 g/dL (32.0-36.0); Mean Corpuscular Volume 91.7 fL (80.0-100.0); Monocytes # (auto) 0.3 10 ^3/uL (0-1.3); Monocytes % (auto) 3.6 % (0.0-12.0); Neutrophils # (auto) 5.8 10 ^3/uL (1.6-8.6); Neutrophils % (auto) 71.7 % (37.0-80.0); Nucleated Red Blood Cells % 0.1 %; Red Blood Cells 3.53 10^6/uL (4.5-5.90); Red Cell Distribution Width 16.2 % (11.8-14.3)
[2023-12-20 15:43] LABS: Alanine Aminotransferase 21 U/L (7-40); Albumin 3.5 g/dL (3.2-4.8); Alkaline Phosphatase 75 U/L (46-116); Anion Gap 15 (5-15); Aspartate Aminotransferase 21 U/L (13-40); BUN/Creatinine Ratio 13.8 (10.0-20.0); Bilirubin, Total 0.3 mg/dL (0.2-1.0); Blood Urea Nitrogen 21 mg/dL (9-23); Calcium 8.7 mg/dL (8.7-10.4); Carbon Dioxide 21 mmol/L (20-30); Chloride 100 mmol/L (98-107); Glucose 126 mg/dL (74-106); Magnesium 1.6 mg/dL (1.6-2.6); Potassium 4.2 mmol/L (3.5-5.1); Total Protein 6.7 g/dL (5.7-8.2)
[2023-12-20 15:46] LABS: Sodium 136 mmol/L (136-145)
[2023-12-20] MEDS: AZITHROMYCIN 500MG/ 250ML 250 ML IV ONE (16:14)
[2023-12-20] MEDS: SODIUM CHLORIDE 0.9% 1,000 ML IV ONE ×2 (16:24→17:29)
[2023-12-20 16:41] LABS: Base Excess -4.5 mmol/L (-2.0-2.0)
[2023-12-20 16:53] LABS: Urine Amorphous Crystal FEW /hpf (None Seen); Urine Bacteria FEW /hpf (None Seen); Urine Blood 3+ /uL (Negative); Urine Clarity Turbid (Clear); Urine Color Yellow (Yellow); Urine Mucus FEW (None Seen); Urine Protein, UAD 1+ (Negative); Urine Specific Gravity 1.018 (1.001-1.035); Urine Urobilinogen Normal (Negative); Urine WBC 10 /hpf (0 - 3)
[2023-12-20] MEDS: NOREPINEPHRINE 8 MG/250ML KIT 250 ML IV SCH (17:41)
[2023-12-20] MEDS: NOREPINEPHRINE 8 MG/250ML KIT 250 ML IV ONE (18:13)
[2023-12-20] MEDS ORDERED: ONDANSETRON HCL 4 MG/2 ML VIAL IV PRN (18:15)
[2023-12-20] MEDS: PIPERACILLIN-TAZOB 3.375GM 100 ML IV ONE (18:20)
[2023-12-20] MEDS ORDERED: VANCOMYCIN PER PHARMACY 0 MG IV SCH (19:00)
[2023-12-20 19:02] LABS: INR 1.37 (0.9-1.15); Prothrombin Time 14.1 sec (9.3-11.8)
[2023-12-20 19:22] LABS: Amphetamine Screen, Urine Neg (NEGATIVE); Barbiturate Scree,Urine Neg (NEGATIVE); Benzodiazephine Screen, Urine Pos (NEGATIVE); Cannabinoid Screen, Urine Neg (NEGATIVE); Cocaine Screen, Urine Neg (NEGATIVE); Opiate Scree,Urine Neg (NEGATIVE); Phencyclidine Screen, Urine Neg (NEGATIVE)
[2023-12-20] MEDS: CLINDAMYCIN 600MG IV 50 ML IV ONE (19:45)
[2023-12-20] MEDS: SODIUM CHLORIDE 0.9% 1,000 ML IV SCH (20:40)
[2023-12-20] MEDS: VANCOMYCIN 1GM/200ML 200 ML IV ONE (21:09)
[2023-12-20] MEDS: CEFEPIME 2GM/50ML NS 50 ML IV SCH (22:02)
[2023-12-21] VITALS (103 sets, daily range): BP systolic 77–155; BP diastolic 50–87; PULSE 66–84; RESP 20–33; TEMP 96.6–98.4; O2SAT 94–100
[2023-12-21] MEDS: InsuLIN REG 1unit/0.01ml Soln (100units/ml) SC SCH (00:15)
[2023-12-21] MEDS: ACCU-CHEK COMFORT CURVE STRIP VI SCH (00:15)
[2023-12-21 03:49] LABS: Eosinophils # (auto) 0 10 ^3/uL (0-0.8); Eosinophils % (auto) 0.1 % (0.0-7.0); Monocytes # (auto) 0.4 10 ^3/uL (0-1.3); Neutrophils # (auto) 9.6 10 ^3/uL (1.6-8.6)
[2023-12-21 03:51] LABS: Basophils # (auto) 0 10 ^3/uL (0-0.2); Basophils % (auto) 0.3 % (0.0-2.0); Hematocrit 27.8 % (41.0-53.0); Hemoglobin 9.1 g/dL (13.5-17.5); Lymphocytes % (auto) 9.1 % (10.0-50.0); Mean Corpuscular Hemoglobin 30.1 pg (28.0-32.0); Mean Corpuscular Hgb Conc. 32.8 g/dL (32.0-36.0); Mean Corpuscular Volume 91.7 fL (80.0-100.0); Monocytes % (auto) 4.1 % (0.0-12.0); Neutrophils % (auto) 86.4 % (37.0-80.0); Red Blood Cells 3.03 10^6/uL (4.5-5.90); Red Cell Distribution Width 16.8 % (11.8-14.3); White Blood Cell 11.1 10^3/uL (4.4-10.8)
[2023-12-21 03:58] LABS: Albumin 3.2 g/dL (3.2-4.8); Alkaline Phosphatase 60 U/L (46-116); Anion Gap 13 (5-15); Aspartate Aminotransferase 18 U/L (13-40); BUN/Creatinine Ratio 15.5 (10.0-20.0); Bilirubin, Total 0.6 mg/dL (0.2-1.0); Blood Urea Nitrogen 26 mg/dL (9-23); Calcium 7.8 mg/dL (8.7-10.4); Carbon Dioxide 20 mmol/L (20-30); Chloride 104 mmol/L (98-107); Glucose 146 mg/dL (74-106); Potassium 3.3 mmol/L (3.5-5.1); Sodium 137 mmol/L (136-145); Total Protein 6.3 g/dL (5.7-8.2)
[2023-12-21 04:23] LABS: Alanine Aminotransferase 16 U/L (7-40)
[2023-12-21] MEDS: MAGNESIUM SULFATE 1GM/100ML 100 ML IV ONE (04:49)
[2023-12-21] MEDS: POTASSIUM CHL 20MEQ/100ML 100 ML IV ONE (05:10)
[2023-12-21 08:46] LABS: Base Excess -5.2 mmol/L (-2.0-2.0)
[2023-12-21] MEDS ORDERED: ENOXAPARIN SOD 40 MG/0.4 ML SYRINGE SC SCH ×2 (10:00→12:00)
[2023-12-21 12:44] LABS: Potassium 3.5 mmol/L (3.5-5.1)
[2023-12-21] MEDS: VANCOMYCIN 1GM/200ML 200 ML IV SCH (21:17)
[2023-12-22] VITALS (107 sets, daily range): BP systolic 79–139; BP diastolic 45–79; PULSE 65–85; RESP 15–27; TEMP 96.4–97.9; O2SAT 99–100
[2023-12-22 00:41] LABS: Basophils # (auto) 0.1 10 ^3/uL (0-0.2); Eosinophils # (auto) 0.1 10 ^3/uL (0-0.8); Eosinophils % (auto) 0.8 % (0.0-7.0); Hematocrit 23.7 % (41.0-53.0); Hemoglobin 7.7 g/dL (13.5-17.5); Lymphocytes % (auto) 8.8 % (10.0-50.0); Mean Corpuscular Hemoglobin 29.9 pg (28.0-32.0); Mean Corpuscular Hgb Conc. 32.4 g/dL (32.0-36.0); Mean Corpuscular Volume 92.4 fL (80.0-100.0); Monocytes # (auto) 0.4 10 ^3/uL (0-1.3); Monocytes % (auto) 3.5 % (0.0-12.0); Neutrophils # (auto) 9.5 10 ^3/uL (1.6-8.6); Neutrophils % (auto) 85.9 % (37.0-80.0); Red Blood Cells 2.56 10^6/uL (4.5-5.90); Red Cell Distribution Width 16.7 % (11.8-14.3); White Blood Cell 11.1 10^3/uL (4.4-10.8)
[2023-12-22 00:51] LABS: Alanine Aminotransferase 13 U/L (7-40); Albumin 2.9 g/dL (3.2-4.8); Alkaline Phosphatase 57 U/L (46-116); Anion Gap 10 (5-15); Aspartate Aminotransferase 11 U/L (13-40); BUN/Creatinine Ratio 16.1 (10.0-20.0); Bilirubin, Total 0.4 mg/dL (0.2-1.0); Blood Urea Nitrogen 19 mg/dL (9-23); Calcium 8.1 mg/dL (8.7-10.4); Carbon Dioxide 19 mmol/L (20-30); Chloride 113 mmol/L (98-107); Glucose 95 mg/dL (74-106); Magnesium 1.9 mg/dL (1.6-2.6); Potassium 3.2 mmol/L (3.5-5.1); Sodium 142 mmol/L (136-145); Total Protein 5.7 g/dL (5.7-8.2)
[2023-12-22] MEDS: POTASSIUM CHL 20MEQ/100ML 100 ML IV ONE ×2 (02:54→10:44)
[2023-12-22 06:50] LABS: Base Excess -5.9 mmol/L (-2.0-2.0)
[2023-12-22] MEDS: MAGNESIUM SULFATE 1GM/100ML 100 ML IV ONE (09:40)
[2023-12-22] MEDS: FREE WATER GT SCH (12:24)
[2023-12-22] MEDS: fentaNYL Drip 2500mCg/250mlNS 250 ML IV SCH (14:10)
[2023-12-22] MEDS: Jevity 1.2 Cal/Fiber 1 Liter GT SCH (14:42)
[2023-12-23] VITALS (102 sets, daily range): BP systolic 88–130; BP diastolic 50–86; PULSE 64–98; RESP 14–17; TEMP 97–99.1; O2SAT 96–100
[2023-12-23 03:54] LABS: Basophils # (auto) 0.1 10 ^3/uL (0-0.2); Eosinophils # (auto) 0.2 10 ^3/uL (0-0.8); Eosinophils % (auto) 2.4 % (0.0-7.0); Monocytes # (auto) 0.4 10 ^3/uL (0-1.3)
[2023-12-23 03:57] LABS: Basophils % (auto) 0.8 % (0.0-2.0); Hematocrit 21.1 % (41.0-53.0); Lymphocytes # (auto) 1.1 10 ^3/uL (0.4-5.4); Lymphocytes % (auto) 13.3 % (10.0-50.0); Mean Corpuscular Hemoglobin 29.9 pg (28.0-32.0); Mean Corpuscular Hgb Conc. 32.5 g/dL (32.0-36.0); Mean Corpuscular Volume 92.1 fL (80.0-100.0); Monocytes % (auto) 4.3 % (0.0-12.0); Neutrophils # (auto) 6.6 10 ^3/uL (1.6-8.6); Neutrophils % (auto) 79.2 % (37.0-80.0); Red Blood Cells 2.29 10^6/uL (4.5-5.90); Red Cell Distribution Width 16.7 % (11.8-14.3); White Blood Cell 8.3 10^3/uL (4.4-10.8)
[2023-12-23 04:09] LABS: Anion Gap 5 (5-15); Carbon Dioxide 23 mmol/L (20-30); Chloride 112 mmol/L (98-107); Potassium 3.5 mmol/L (3.5-5.1); Sodium 140 mmol/L (136-145)
[2023-12-23 04:11] LABS: Calcium 8.2 mg/dL (8.7-10.4); Hemoglobin 6.8 g/dL (13.5-17.5)
[2023-12-23 04:15] LABS: Glucose 94 mg/dL (74-106)
[2023-12-23 04:16] LABS: BUN/Creatinine Ratio 13.7 (10.0-20.0); Blood Urea Nitrogen 13 mg/dL (9-23)
[2023-12-23 08:14] LABS: Base Excess -4.9 mmol/L (-2.0-2.0)
[2023-12-23] MEDS: PANTOPRAZOLE 40 MG/10 ML VIAL INJ IV SCH (10:05)
[2023-12-23] MEDS ORDERED: EPINEPHrine HCL 1 MG/1 ML AMP ONE (12:09)
[2023-12-23] MEDS ORDERED: LIDOCAINE 2%HCL (LOCAL ANESTH.) INJ 20ML MDV ONE (12:09)
[2023-12-23] MEDS ORDERED: LIDOCAINE 2% JELLY 11ml (GLYDO) ONE (12:09)
[2023-12-23] MEDS ORDERED: GLYCOPYRROLATE 0.2 MG/ML 1ML VIAL ONE (12:18)
[2023-12-23] MEDS ORDERED: VANCOMYCIN 1GM/200ML 200 ML IV SCH (15:00)
[2023-12-24] VITALS (106 sets, daily range): BP systolic 84–151; BP diastolic 52–92; PULSE 75–95; RESP 14–23; TEMP 96.1–99.9; O2SAT 84–100
[2023-12-24 04:08] LABS: Hematocrit 27.6 % (41.0-53.0); Hemoglobin 9.1 g/dL (13.5-17.5)
[2023-12-24 04:17] LABS: Calcium 8.7 mg/dL (8.7-10.4); Chloride 108 mmol/L (98-107); Potassium 3.5 mmol/L (3.5-5.1); Sodium 137 mmol/L (136-145)
[2023-12-24 04:18] LABS: Anion Gap 5 (5-15); Carbon Dioxide 24 mmol/L (20-30)
[2023-12-24 04:23] LABS: BUN/Creatinine Ratio 11.2 (10.0-20.0); Blood Urea Nitrogen 11 mg/dL (9-23); Glucose 100 mg/dL (74-106)
[2023-12-24 07:26] LABS: Base Excess -3.7 mmol/L (-2.0-2.0)
[2023-12-24] MEDS ORDERED: FLUMAZENIL 0.1 MG/ML INJ 10ML MDV IV ONE (08:13)
[2023-12-24] MEDS ORDERED: NALOXONE HCL 0.4 MG/ML VIAL ONE (08:13)
[2023-12-24] MEDS ORDERED: GLYCOPYRROLATE 0.2 MG/ML 1ML VIAL ONE (08:14)
[2023-12-24] MEDS ORDERED: LIDOCAINE 2% JELLY 11ml (GLYDO) ONE (08:14)
[2023-12-24] MEDS ORDERED: EPINEPHrine HCL 1 MG/1 ML AMP ONE (08:14)
[2023-12-24] MEDS ORDERED: LIDOCAINE 2%HCL (LOCAL ANESTH.) INJ 20ML MDV ONE (08:14)
[2023-12-24] MEDS: CEFEPIME 2GM/50ML NS 50 ML IV SCH (15:00)
[2023-12-24] MEDS: DEXTROSE (50%) 50ML SYRG IV PRN (18:39)
[2023-12-25] VITALS (108 sets, daily range): BP systolic 92–142; BP diastolic 53–83; PULSE 69–104; RESP 16–23; TEMP 97.7–99; O2SAT 96–100
[2023-12-25 02:18] LABS: Chloride 105 mmol/L (98-107); Sodium 135 mmol/L (136-145)
[2023-12-25 02:19] LABS: Anion Gap 3 (5-15); Calcium 8.8 mg/dL (8.7-10.4); Carbon Dioxide 27 mmol/L (20-30)
[2023-12-25 02:24] LABS: Blood Urea Nitrogen 9 mg/dL (9-23); Glucose 126 mg/dL (74-106)
[2023-12-25 02:25] LABS: Magnesium 1.5 mg/dL (1.6-2.6)
[2023-12-25 02:44] LABS: Hematocrit 27.8 % (41.0-53.0); Hemoglobin 9.3 g/dL (13.5-17.5); Mean Corpuscular Hemoglobin 30.3 pg (28.0-32.0); Mean Corpuscular Hgb Conc. 33.5 g/dL (32.0-36.0); Mean Corpuscular Volume 90.5 fL (80.0-100.0); Red Blood Cells 3.07 10^6/uL (4.5-5.90); Red Cell Distribution Width 16.3 % (11.8-14.3); White Blood Cell 7.3 10^3/uL (4.4-10.8)
[2023-12-25 02:49] LABS: Basophils % (manual) 0 (0.0-2.0); Blast Cells 0; Metamyelocytes % 0; Myelocytes % 0; Promyelocytes % 0; Reactive Lymphocytes 0
[2023-12-25 03:43] LABS: Band Neutrophils % (manual) 3; Eosinophils % (manual) 2 (0-7); Lymphocytes % (manual) 18 (10.0-50.0); Monocytes % (manual) 6 (0-12); Platelet Estimate Adequate
[2023-12-25 03:44] LABS: Stomatocytes Few
[2023-12-25 07:48] LABS: Base Excess 0.9 mmol/L (-2.0-2.0)
[2023-12-25] MEDS: MAGNESIUM SULFATE 1GM/100ML 200 ML IV ONE (09:42)
[2023-12-25] MEDS: MAGNESIUM SULFATE 1GM/100ML 100 ML IV SCH (10:47)
[2023-12-25] MEDS: FREE WATER GT SCH (12:24)
[2023-12-25] MEDS: METOCLOPRAMIDE 10 mg/10ml ORAL soln GT SCH (13:58)
[2023-12-26] VITALS (107 sets, daily range): BP systolic 86–132; BP diastolic 40–86; PULSE 90–116; RESP 15–19; TEMP 97.9–99; O2SAT 95–100
[2023-12-26 04:21] LABS: Hematocrit 28.2 % (41.0-53.0); Hemoglobin 9.3 g/dL (13.5-17.5); Mean Corpuscular Hemoglobin 29.6 pg (28.0-32.0); Mean Corpuscular Hgb Conc. 32.9 g/dL (32.0-36.0); Mean Corpuscular Volume 90.1 fL (80.0-100.0); Red Blood Cells 3.13 10^6/uL (4.5-5.90); Red Cell Distribution Width 16.1 % (11.8-14.3); White Blood Cell 6.6 10^3/uL (4.4-10.8)
[2023-12-26 04:30] LABS: Basophils % (manual) 0 (0.0-2.0); Blast Cells 0; Metamyelocytes % 0; Myelocytes % 0; Promyelocytes % 0; Reactive Lymphocytes 0
[2023-12-26 04:34] LABS: Calcium 9.1 mg/dL (8.7-10.4); Chloride 102 mmol/L (98-107); Potassium 3.6 mmol/L (3.5-5.1); Sodium 135 mmol/L (136-145)
[2023-12-26 04:35] LABS: Anion Gap 4 (5-15); Carbon Dioxide 29 mmol/L (20-30)
[2023-12-26 04:40] LABS: BUN/Creatinine Ratio 11.3 (10.0-20.0); Blood Urea Nitrogen 9 mg/dL (9-23); Glucose 108 mg/dL (74-106)
[2023-12-26 04:41] LABS: Magnesium 1.8 mg/dL (1.6-2.6)
[2023-12-26 05:28] LABS: INR 1.08 (0.9-1.15); Partial Thromboplastin Time 32.8 SEC (24.5-34.5); Prothrombin Time 11.3 sec (9.3-11.8)
[2023-12-26 05:51] LABS: Band Neutrophils % (manual) 1; Eosinophils % (manual) 3 (0-7); Lymphocytes % (manual) 29 (10.0-50.0); Monocytes % (manual) 11 (0-12); Platelet Estimate Adequate
[2023-12-26 07:14] LABS: Base Excess 1.6 mmol/L (-2.0-2.0)
[2023-12-27] VITALS (98 sets, daily range): BP systolic 87–135; BP diastolic 4–81; PULSE 84–107; RESP 15–97; TEMP 96.8–99.3; O2SAT 96–100
[2023-12-27 04:02] LABS: Hematocrit 26.5 % (41.0-53.0); Hemoglobin 8.8 g/dL (13.5-17.5); Mean Corpuscular Hemoglobin 30.2 pg (28.0-32.0); Mean Corpuscular Hgb Conc. 33.1 g/dL (32.0-36.0); Mean Corpuscular Volume 91.1 fL (80.0-100.0); Red Blood Cells 2.91 10^6/uL (4.5-5.90); White Blood Cell 5.8 10^3/uL (4.4-10.8)
[2023-12-27 04:07] LABS: Anion Gap 5 (5-15); Carbon Dioxide 29 mmol/L (20-30); Chloride 101 mmol/L (98-107); Potassium 3.9 mmol/L (3.5-5.1); Sodium 135 mmol/L (136-145)
[2023-12-27 04:08] LABS: Calcium 8.9 mg/dL (8.7-10.4)
[2023-12-27 04:13] LABS: BUN/Creatinine Ratio 12.8 (10.0-20.0); Blood Urea Nitrogen 11 mg/dL (9-23); Glucose 153 mg/dL (74-106)
[2023-12-27 04:16] LABS: Basophils % (manual) 0 (0.0-2.0); Blast Cells 0; Metamyelocytes % 0; Myelocytes % 0; Promyelocytes % 0; Reactive Lymphocytes 0
[2023-12-27 04:46] LABS: Band Neutrophils % (manual) 5; Eosinophils % (manual) 2 (0-7); Lymphocytes % (manual) 11 (10.0-50.0); Monocytes % (manual) 8 (0-12); Platelet Estimate Adequate
[2023-12-27 07:55] LABS: Base Excess 5.4 mmol/L (-2.0-2.0)
[2023-12-28] VITALS (110 sets, daily range): BP systolic 100–157; BP diastolic 50–94; PULSE 83–114; RESP 15–22; TEMP 97.5–99.5; O2SAT 92–100
[2023-12-28 03:39] LABS: Hematocrit 27.9 % (41.0-53.0); Hemoglobin 9.1 g/dL (13.5-17.5); Mean Corpuscular Hemoglobin 29.7 pg (28.0-32.0); Mean Corpuscular Hgb Conc. 32.7 g/dL (32.0-36.0); Mean Corpuscular Volume 90.8 fL (80.0-100.0); Red Blood Cells 3.08 10^6/uL (4.5-5.90); Red Cell Distribution Width 16.4 % (11.8-14.3); White Blood Cell 5.5 10^3/uL (4.4-10.8)
[2023-12-28 03:48] LABS: Basophils % (manual) 0 (0.0-2.0); Blast Cells 0; Promyelocytes % 0; Reactive Lymphocytes 0
[2023-12-28 03:51] LABS: Chloride 100 mmol/L (98-107); Potassium 3.4 mmol/L (3.5-5.1); Sodium 137 mmol/L (136-145)
[2023-12-28 03:52] LABS: Anion Gap 5 (5-15); Carbon Dioxide 32 mmol/L (20-30)
[2023-12-28 03:57] LABS: Blood Urea Nitrogen 13 mg/dL (9-23); Glucose 130 mg/dL (74-106)
[2023-12-28 04:27] LABS: Band Neutrophils % (manual) 22; Eosinophils % (manual) 4 (0-7); Lymphocytes % (manual) 10 (10.0-50.0); Metamyelocytes % 4; Monocytes % (manual) 8 (0-12); Myelocytes % 7; Platelet Estimate Adequate
[2023-12-28] MEDS: POTASSIUM CHL 20 Meq TABLET PO ONE (09:48)
[2023-12-28] MEDS: POTASSIUM EFFERVESENT TAB 25 MEQ GT ONE (10:47)
[2023-12-28] MEDS ORDERED: LACTULOSE 20Gm/30ML SOLN PO PRN (11:15)
[2023-12-28] MEDS: POTASSIUM CHL 20MEQ/100ML 100 ML IV ONE (13:06)
[2023-12-28] MEDS: MAGNESIUM SULFATE 1GM/100ML 100 ML IV ONE (13:06)
[2023-12-28] MEDS: DOCUSATE ORAL LIQUID 100 MG/10 ML UD GT PRN (14:27)
[2023-12-28 16:56] LABS: Chloride 98 mmol/L (98-107); Potassium 4.4 mmol/L (3.5-5.1); Sodium 135 mmol/L (136-145)
[2023-12-28 16:57] LABS: Anion Gap 6 (5-15); Carbon Dioxide 31 mmol/L (20-30)
[2023-12-28 16:58] LABS: Calcium 9.3 mg/dL (8.5-10.1)
[2023-12-28 17:03] LABS: BUN/Creatinine Ratio 16.5 (10.0-20.0); Blood Urea Nitrogen 13 mg/dL (9-23); Glucose 128 mg/dL (74-106)
[2023-12-29] VITALS (108 sets, daily range): BP systolic 93–155; BP diastolic 57–121; PULSE 82–111; RESP 12–25; TEMP 96.6–99.3; O2SAT 91–100
[2023-12-29 03:55] LABS: Hemoglobin 9.5 g/dL (13.5-17.5); White Blood Cell 6.2 10^3/uL (4.4-10.8)
[2023-12-29 03:58] LABS: Hematocrit 28.7 % (41.0-53.0); Mean Corpuscular Hemoglobin 30.1 pg (28.0-32.0); Mean Corpuscular Hgb Conc. 33.2 g/dL (32.0-36.0); Mean Corpuscular Volume 90.7 fL (80.0-100.0); Red Blood Cells 3.16 10^6/uL (4.5-5.90); Red Cell Distribution Width 16.1 % (11.8-14.3)
[2023-12-29 04:01] LABS: Calcium 9.6 mg/dL (8.7-10.4); Chloride 95 mmol/L (98-107); Potassium 4.2 mmol/L (3.5-5.1); Sodium 134 mmol/L (136-145)
[2023-12-29 04:02] LABS: Anion Gap 6 (5-15); Carbon Dioxide 33 mmol/L (20-30)
[2023-12-29 04:06] LABS: Basophils % (manual) 0 (0.0-2.0); Blast Cells 0; Metamyelocytes % 0; Myelocytes % 0; Promyelocytes % 0; Reactive Lymphocytes 0
[2023-12-29 04:07] LABS: BUN/Creatinine Ratio 17.7 (10.0-20.0); Blood Urea Nitrogen 14 mg/dL (9-23); Glucose 98 mg/dL (74-106)
[2023-12-29 05:32] LABS: Band Neutrophils % (manual) 6; Eosinophils % (manual) 2 (0-7)
[2023-12-29 05:33] LABS: Lymphocytes % (manual) 28 (10.0-50.0); Monocytes % (manual) 8 (0-12); Platelet Estimate Increased
[2023-12-29 06:59] LABS: Base Excess 7.7 mmol/L (-2.0-2.0)
[2023-12-29] MEDS ORDERED: MIDAZOLAM HCL 2MG/2ML 2ml VIAL (1mg/ml) ONE ×2 (07:58→08:33)
[2023-12-29] MEDS ORDERED: fentaNYL CITRATE 100 MCG/2 ML VL ONE (07:58)
[2023-12-29] MEDS ORDERED: HYDROmorphone HCL 2 MG/ML VL/or syr ONE ×2 (07:58→08:42)
[2023-12-29] MEDS ORDERED: DexAMETHasone SOD PHOS 10MG/1ML VIAL INJ ONE (08:26)
[2023-12-29] MEDS: BUPIVACAINE 0.5% P/F INJ 10 ML VIAL ONE (08:27)
[2023-12-29] MEDS ORDERED: PROPOFOL 10 MG/ML 20 ML IV ONE (08:29)
[2023-12-30] VITALS (110 sets, daily range): BP systolic 89–170; BP diastolic 52–100; PULSE 76–113; RESP 13–27; TEMP 97.9–101.1; O2SAT 98–100
[2023-12-30 04:05] LABS: Hematocrit 27.2 % (41.0-53.0)
[2023-12-30 04:34] LABS: Anion Gap 5 (5-15); Carbon Dioxide 30 mmol/L (20-30); Chloride 98 mmol/L (98-107); Sodium 133 mmol/L (136-145)
[2023-12-30 04:35] LABS: Calcium 9.2 mg/dL (8.7-10.4)
[2023-12-30 04:40] LABS: BUN/Creatinine Ratio 21.6 (10.0-20.0); Blood Urea Nitrogen 19 mg/dL (9-23); Glucose 120 mg/dL (74-106)
[2023-12-30] MEDS: LIDOCAINE W/ EPINEPHRINE 1% 20ML VIAL ONE (05:53)
[2023-12-30 07:13] LABS: Base Excess 4.7 mmol/L (-2.0-2.0)
[2023-12-30] MEDS: ACETAMINOPHEN 650 mg PER 20.3 mL UD GT PRN (14:29)
[2023-12-30] MEDS: METOPROLOL TARTRATE 25 MG TAB PO SCH (16:39)
[2023-12-31] VITALS (101 sets, daily range): BP systolic 73–168; BP diastolic 46–106; PULSE 81–133; RESP 12–30; TEMP 97.7–101.9; O2SAT 93–100
[2023-12-31 04:07] LABS: Hemoglobin 9.6 g/dL (13.5-17.5); Mean Corpuscular Volume 91.1 fL (80.0-100.0); Red Blood Cells 3.19 10^6/uL (4.5-5.90); Red Cell Distribution Width 16.3 % (11.8-14.3); White Blood Cell 6.4 10^3/uL (4.4-10.8)
[2023-12-31 04:17] LABS: Basophils % (manual) 0 (0.0-2.0); Blast Cells 0; Metamyelocytes % 0; Promyelocytes % 0; Reactive Lymphocytes 0
[2023-12-31 04:28] LABS: Chloride 100 mmol/L (98-107); Potassium 4.4 mmol/L (3.5-5.1); Sodium 135 mmol/L (136-145)
[2023-12-31 04:29] LABS: Anion Gap 5 (5-15); Calcium 9.1 mg/dL (8.5-10.1); Carbon Dioxide 30 mmol/L (20-30)
[2023-12-31 04:34] LABS: BUN/Creatinine Ratio 21.4 (10.0-20.0); Blood Urea Nitrogen 18 mg/dL (9-23); Glucose 106 mg/dL (74-106)
[2023-12-31 05:01] LABS: Band Neutrophils % (manual) 7; Eosinophils % (manual) 1 (0-7); Monocytes % (manual) 7 (0-12); Myelocytes % 2
[2023-12-31 05:02] LABS: Lymphocytes % (manual) 13 (10.0-50.0); Platelet Estimate Adequate
[2023-12-31 05:03] LABS: Large Platelets FEW; Stomatocytes Few
[2023-12-31 08:04] LABS: Base Excess 3.7 mmol/L (-2.0-2.0)
[2023-12-31] MEDS: METOPROLOL TARTRATE 25 MG TAB PO SCH (10:00)
[2023-12-31] MEDS: levoFLOXacin 500 MG TAB PO SCH (11:08)
[2023-12-31] MEDS: IBUPROFEN 100MG/5ML ORAL SUSP 100 MG/5 ML UD GT ONE (14:17)
== END 2023-12-31 21:18 | DRG 5 ==
LOC: ER 14:48 → EDBD 14:48 → TELE 18:36 → ICU WEST 20:37 → UNDODISIN 12-31 21:18
PROVIDERS: ADMIT Nurse Practitioner Family; ATTEND Nurse Practitioner Acute Care
PROC: 5A1955Z Respiratory Ventilation, Greater than 96 Consecutive Hours (ICD-10-PCS; principal; 2023-12-20)
PROC: 0BH17EZ Insertion of Endotracheal Airway into Trachea, Via Natural or Artificial Opening (ICD-10-PCS; 2023-12-20)
PROC: 30233N1 Transfusion of Nonautologous Red Blood Cells into Peripheral Vein, Percutaneous Approach (ICD-10-PCS; 2023-12-23)
PROC: 0B948ZZ Drainage of Right Upper Lobe Bronchus, Via Natural or Artificial Opening Endoscopic (ICD-10-PCS; 2023-12-24)
PROC: 0B110F4 Bypass Trachea to Cutaneous with Tracheostomy Device, Open Approach (ICD-10-PCS; 2023-12-29)
DX: A41.9 Sepsis, unspecified organism (principal); N17.0 Acute kidney failure with tubular necrosis; R65.21 Severe sepsis with septic shock; J69.0 Pneumonitis due to inhalation of food and vomit; G93.41 Metabolic encephalopathy; J96.21 Acute and chronic respiratory failure with hypoxia; I50.23 Acute on chronic systolic (congestive) heart failure; D63.8 Anemia in other chronic diseases classified elsewhere; J15.9 Unspecified bacterial pneumonia; I21.A1 Myocardial infarction type 2; I11.0 Hypertensive heart disease with heart failure; Y95 Nosocomial condition; R47.01 Aphasia; R62.7 Adult failure to thrive; N30.00 Acute cystitis without hematuria; I25.10 Atherosclerotic heart disease of native coronary artery without angina pectoris; E78.5 Hyperlipidemia, unspecified; E11.9 Type 2 diabetes mellitus without complications; Z79.899 Other long term (current) drug therapy; Z79.01 Long term (current) use of anticoagulants; F13.10 Sedative, hypnotic or anxiolytic abuse, uncomplicated; Z87.891 Personal history of nicotine dependence; Z86.73 Personal history of transient ischemic attack (TIA), and cerebral infarction without residual deficits; Z79.84 Long term (current) use of oral hypoglycemic drugs; Z82.49 Family history of ischemic heart disease and other diseases of the circulatory system; Z74.01 Bed confinement status; Z68.1 Body mass index [BMI] 19.9 or less, adult; Z99.11 Dependence on respirator [ventilator] status
CPT/HCPCS: 31500; 31645; 36415; 36556; 36600; 70450; 71045; 80048; 80053; 80202; 80307; 80320; 81001; 82805; 82962; 83605; 83735; 84100; 84132; 84484; 85007; 85014; 85018; 85025; 85027; 85610; 85730; 86850; 86900; 86901; 86920; 87040; 87070; 87077; 87081; 87086; 87186; 87205; 94002; 94003; 94640; 96365; 96367; C9113; G0378; J0171; J0692; J1100; J2250; J2543; J2704; J3480; J3490